=== PATIENT | male | born 1955 | race Caucasian/White ===

== ENCOUNTER 2017-10-28 11:19 | Emergency (ER) | payer OTHER ==
--- OUTSIDE RECORDS SUMMARY | 2017-10-28 11:21 | XMS REPORT | Clinical Summary ---
:1955 Author Organization [facility] Address [address] [place] [address] Care Team Providers Name Role Phone Will Quick MD Primary Care Provider Allergies No Known Allergies Current Medications Prescription Sig. Disp. Refills Start Date End Date Status traMADol (ULTRAM) 50 Take 1 tablet 15 tablet 0 03/11/2017 03/16/2017 mg tablet (50 mg total) by mouth every 6 (six) hours as needed for moderate pain for up to 5 days. acetaminophen-codeine Take 1-2 tablets 60 tablet 0 05/25/2017 06/09/2017 (TYLENOL WITH CODEINE by mouth every 4 #3) 300-30 mg per (four) hours as tablet needed for moderate pain for up to 15 days. tiZANidine (ZANAFLEX) Take 1 tablet (2 20 tablet 0 05/25/2017 06/24/2017 2 MG tablet mg total) by mouth every 6 (six) hours as needed for muscle spasms for up to 30 days. traMADol (ULTRAM) 50 Take 1 tablet 60 tablet 0 05/25/2017 06/09/2017 mg tablet (50 mg total) by mouth every 6 (six) hours as needed for moderate pain for up to 15 days. 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); MD Meghan Chronic low back pain without sciatica, unspecified back pain laterality; Sagittal plane imbalance; Degenerative scoliosis in adult patient; DDD (degenerative disc disease), lumbar 06/12/2017 Office Visit Orthopedic Surgery Jose Gibson Scoliosis, unspecified scoliosis type, unspecified spinal region (Primary Dx); MD Meghan Sagittal plane imbalance; Pseudarthrosis following spinal fusion; Chronic low back pain without sciatica, unspecified back pain laterality 05/23/2017 Hospital Encounter Neurology Jose Gibson Pseudarthrosis after MD Meghan fusion or arthrodesis 05/23/2017 Anesthesia Event General Surgery Nikko Rodriguez MD 05/23/2017 Procedure Pass General Surgery 05/23/2017 Surgery General Surgery Jose Gibson REVISION MD Meghan INSTRUMENTATION THORACIC 10- PELVIS AND REVISION OF FUSION FROM LUMBAR 4 - PELVIS 05/16/2017 - Hospital Encounter Orthopedic Surgery Jose Gibson Pseudarthrosis after 05/26/2017 MD Meghan fusion or arthrodesis 05/16/2017 Procedure Pass General Surgery 05/16/2017 Surgery General Surgery Jose Gibson ANTERIOR REVISION MD Meghan LUMBAR INTERBODY FUSION L5-S1 OSTEOTOMY ANTERIOR INTERBODY INSTRUMENTATION L5-S1 WITH BMP 05/14/2017 Anesthesia Event General Surgery James Bedoya, FORMING MACHINE OPERATOR 04/11/2017 Orders Only Orthopedic Surgery Claudia Roberts, Pseudarthrosis after MA fusion or arthrodesis (Primary Dx) 04/10/2017 Pre-Admit Testing Pre-Admission Jose Gibson Appointment Testing MD Meghan 04/10/2017 Office Visit Orthopedic Surgery Jose Gibson Scoliosis, unspecified scoliosis type, unspecified spinal region (Primary Dx); MD Meghan Pseudarthrosis following spinal fusion; Sagittal plane imbalance; Chronic low back pain without sciatica, unspecified back pain laterality 03/13/2017 Office Visit Orthopedic Surgery Jose Gibson Pseudarthrosis following spinal fusion (Primary Dx); MD Meghan Degenerative scoliosis in adult patient; DDD (degenerative disc disease), lumbar; Chronic low back pain without sciatica, unspecified back pain laterality 03/11/2017 Emergency Emergency Medicine Vaishali Acute midline low back Marvin, DO pain without sciatica (Primary Dx) after 10/27/2016 Family History Medical History Relation Name Comments Hypertension Father Diabetes Mother Relation Name Status Comments Father Mother Social History Tobacco Use Types Packs/Day Years Used Date Former Smoker Cigarettes 1 46 Quit: 03/13/2017 Alcohol Use Drinks/Week oz/Week Comments No Sex Assigned at Date Recorded Not on file Last Filed Vital Signs Vital Sign Reading Time Taken Blood Pressure 122/78 05/26/2017 7:44 AM BIOLOGIST AIDE Pulse 78 05/26/2017 7:44 AM BIOLOGIST AIDE Temperature 36.9 C (98.5 F) 05/26/2017 7:44 AM BIOLOGIST AIDE Respiratory Rate 18 05/26/2017 7:44 AM BIOLOGIST AIDE Oxygen Saturation 97% 05/26/2017 7:44 AM BIOLOGIST AIDE Inhaled Oxygen Concentration - - Weight 73.7 kg (162 lb 7 oz) 05/16/2017 6:27 AM BIOLOGIST AIDE Height 180.3 cm (5' 11") 05/23/2017 6:35 AM BIOLOGIST AIDE Body Mass Index 22.66 05/16/2017 6:27 AM BIOLOGIST AIDE Plan of Treatment Date Type Specialty Care Team Description 11/06/2017 Office Visit Orthopedic Surgery Jose Gibson MD [address] [address] Health Maintenance Due Date Last Done Comments COLONOSCOPY 2004 ZOSTER VACCINE 2014 INFLUENZA VACCINE 02/05/2018 Implants Implanted Type Area Cloud Systems Administrator Device Expiration Model / Serial Identifier Date / Lot Chip Canc Allograft Leader Crshd 30cc 0.1-4mm - [id number] - [id number] Human Tissue N/A: MUSCULOSKELETAL 11/22/2019 [id number] / Implanted: Qty: 1 on 05/16/2017 by Jose Gibson MD Implants N/A TRANSPLANT [id number] / FOUNDATION [id number] Kit Bone Grft Lmbr Tprd 2.8ml Sm Infuse - [id number] Human Tissue N/A: MEDTRONIC SPINAL 05/07/2019 [id number] / Implanted: Qty: 1 on 05/16/2017 by Jose Gibson MD Implants N/A AND BIOLOGICS / [id number] Chip Canc Allograft Leader Crshd 30cc 0.1-4mm - [id number] - [id number] Human Tissue N/A: MUSCULOSKELETAL 02/01/2020 [id number] / Implanted: Qty: 1 on 05/23/2017 by Jose Gibson MD Implants N/A TRANSPLANT [id number] / FOUNDATION [id number] [facility] Allograft Leader Crshd 30cc 0.1-4mm - [id number] - [id number] Human Tissue N/A: MUSCULOSKELETAL 02/01/2020 [id number] / Implanted: Qty: 1 on 05/23/2017 by Jose Gibson MD Implants N/A TRANSPLANT [id number] / FOUNDATION [id number] Kit Bone Grft Lmbr Tprd 5.6ml Med Infuse - [id number] Human Tissue N/A: MEDTRONIC SPINAL 09/04/2018 [id number] / Implanted: Qty: 1 on 05/23/2017 by Jose Gibson MD Implants N/A AND BIOLOGICS / [id number] Synmesh 22mm X 28mm 34mm Height (Ti) - (00) Synmesh - [id number] [id number] IMPLANT N/A: SYNTHES SPINE [id number] / Implanted: Qty: 1 on 05/16/2017 by Jose Gibson MD DEVICES N/A / 30mm Ao Screw - [id number] [id number] IMPLANT N/A: SYNTHES SPINE [id number] / Implanted: Qty: 1 on 05/16/2017 by Jose Gibson MD DEVICES N/A / Expedium Plus Ti, José Miguel, Str, Ti, 450mm (Hx End) - [id number] [id number] IMPLANT N/A: DEPUY SYNTHES [id number] / Implanted: Qty: 2 on 05/23/2017 by Jose Gibson MD DEVICES N/A SPINE / [employer] Iexp Ti Fdc X25 Set Screw - [id number] [id number] IMPLANT N/A: DEPUY SYNTHES [id number] / Implanted: Qty: 3 on 05/23/2017 by Jose Gibson MD DEVICES N/A SPINE / Washer For Lg Ti Scr 13mm - [id number] Orthopedic N/A: SYNTHES TRAUMA [id number] / Implanted: Qty: 1 on 05/16/2017 by Jose Gibson MD Trauma N/A AND RECON / Implants Screw Spinal Set Si Ti 6.35mm Expedium - [id number] Spinal N/A: DEPUY SPINE [id number] / Implanted: Qty: 16 on 05/23/2017 by Jose Gibson MD Implants N/A / Kit Hemostatic Matrix W/Thrombin 8ml Surgiflo - [id number] Surgical N/A: [facility] 09/04/2018 [id number] / Implanted: Qty: 1 on 05/16/2017 by Jose Gibson MD Implants; N/A / Expanders; [id number] Extenders; Surgical Wires Kit Hemostatic Matrix W/Thrombin 8ml Surgiflo - [id number] Surgical N/A: [facility] 09/04/2018 [id number] / Implanted: Qty: 1 on 05/23/2017 by Jose Gibson MD Implants; N/A / Expanders; [id number] Extenders; Surgical Wires Procedures Procedure Name Priority Date/Time Associated Diagnosis Comments INTRAOPERATIVE Routine 05/23/2017 11:11 Pseudarthrosis after Results for this MONITORING AM BIOLOGIST AIDE fusion or arthrodesis procedure are in the results section. ARTERIAL LINE Routine 05/23/2017 8:33 AM BIOLOGIST AIDE Procedure Note - Nikko Rodriguez MD - 05/23/2017 8:32 AM BIOLOGIST AIDE Arterial line Performed by: NIKKO RODRIGUEZ Authorized by: NIKKO RODRIGUEZ Patient Location: OR Staff: Anesthesiologist: NIKKO RODRIGUEZ Performed by: Anesthesiologist Pre-procedure: patient identified, IV checked, site and side verified, risks and benefits discussed, procedure verified, surgical consent complete, patient position confirmed, monitors and equipment checked and pre-op evaluation complete MSBT: antiseptic used, all elements of maximal sterile barrier technique followed, hand hygiene performed, cap/gown used by other personnel and solutions labeled Indications: Indications: hemodynamic monitoring Anesthesia: Anesthesia: General Procedure Details: Arterial Line placement: Placed post induction Line placement site: Radial Line placement side: Left Arterial line gauge: 20 G Number of attempts: 1 Ultrasound guidance used: No Post-procedure: Post-procedure: Sterile dressing applied Post procedure circulation, sensation, movement: Normal and unchanged Patient tolerance: Patient tolerated the procedure well with no immediate complications ANESTHESIA INTUBATION Routine 05/23/2017 8:32 AM BIOLOGIST AIDE Procedure Note - Nikko Rodriguez MD - 05/23/2017 8:32 AM BIOLOGIST AIDE Airway Performed by: NIKKO RODRIGUEZ Authorized by: NIKKO RODRIGUEZ Location: OR Difficult Airway: No Anesthesiologist: NIKKO RODRIGUEZ Performed by: anesthesiologist Preoxygenated with 100% O2: Yes Mask Ventilation: Not attempted Final Airway Type: Endotracheal airway Final Endotracheal Airway: ETT Technique Used: Direct laryngoscopy Insertion Site: Oral Blade Type: Katherine Laryngoscope Blade/Videolaryngoscope Blade Size: 3 ETT Size (mm): 8.0 Measured from: Lips ETT to Lips (cm): 23 Placement Verified by: CO2 detection, direct visualization and equal breath sounds Laryngoscopic view: Grade IIa - partial view of glottis Rapid Sequence Induction (RSI): Yes Number of Attempts at Approach: 1 REVISION INSTRUMENTATION THORACIC 10- PELVIS AND 05/23/2017 7:30 AM BIOLOGIST AIDE M96.0 REVISION OF FUSION FROM LUMBAR 4 - PELVIS Case Notes C-ARM CELL SAVER SSEP MOTORS 90 ALLOGRAFT GRADUALS HORI ZONAL GEL ROLLS DEPUTY YAMILET SUCTION BOVIE Special Needs C-ARM CELL SAVER SSEP MOTORS 90 ALLOGRAFT GRADUALS HORIZONAL GEL ROLLS DEPUY YAMILET SUCTION BOVIE INTRAOPERATIVE Routine 05/16/2017 2:14 Pseudarthrosis after Results for this MONITORING PM BIOLOGIST AIDE fusion or arthrodesis procedure are in the results section. ARTERIAL LINE Routine 05/16/2017 10:00 Results for this AM BIOLOGIST AIDE procedure are in the results section. MO AN ELECTIVE Routine 05/16/2017 9:59 Results for this ENDOTRACHEAL AIRWAY AM BIOLOGIST AIDE procedure are in the results section. ANTERIOR REVISION 05/16/2017 7:30 Nonunion of subtalar LUMBAR INTERBODY FUSION AM BIOLOGIST AIDE arthrodesis L5-S1 OSTEOTOMY ANTERIOR INTERBODY INSTRUMENTATION L5-S1 WITH BMP Case Notes C-ARM, SSEP'S WITH MOTORS, @[address] BOSTON ANTERIOR EXPOSURE PHYSICIAN 05/15/17TW Special Needs DR BOSTON FOR ANTERIOR EXPOSURE, C-ARM, CELL SAVER, SSEP MOTORS, 90 CC ALLOGRAFT GRANULES, YAMILET SUCTION BOVIE, DEPUY after 10/27/2016 Results XR Spine Scoliosos 2-3 Views (08/14/2017 10:02 AM)Only the most recent of4 resultswithin the time period is included. Specimen Performing Laboratory [facility] [address] [place] [address] Narrative AP lateral scoliosis x-ray shows hardware from the thoracolumbar spine to the pelvis with interbody instrumentation at the thoracolumbar junction. The interbody instrumentation appears intact with no evidence of hardware failure or lucency.Multilevel degenerative changes and cervical thoracic spine are noted above the prior construct with no evidence of new abnormalities. CBC hemogram (05/25/2017 5:00 AM)Only the most recent of2 resultswithin the time period is included. Component Value Ref Range WBC 12.25 (H) 4.50 - 11.00 k/uL RBC 3.17 (L) 4.40 - 6.00 m/uL HGB 9.2 (L) 14.0 - 18.0 g/dL HCT 28.6 (L) 41.0 - 51.0 % MCV 90.2 82.0 - 100.0 fL MCH 29.0 27.0 - 34.0 pg MCHC 32.2 31.0 - 37.0 g/dL RDW - SD 44.9 37.0 - 55.0 fL MPV 8.8 8.8 - 13.2 fL Platelet count 320 150 - 400 k/uL Nucleated RBC 0.00 /100 WBC Specimen Performing Laboratory Blood [facility] DEPARTMENT OF PATHOLOGY AND GENOMIC MEDICINE [address] [place] [address] Estimated GFR (05/24/2017 4:00 AM)Only the most recent of2 resultswithin the time period is included. Component Value Ref Range GFR Non Af Amer >90 mL/min/1.73 m2 GFR Af Amer >90 mL/min/1.73 m2 Comment: Chronic kidney disease: <60 mL/min/1.73m2 Kidney failure: <15 mL/min/1.73m2 The estimated GFR is calculated from the IDMS-traceable Modification of Diet in Renal Disease Equation. The accuracy of the calculation is poor when the creatinine is normal. Calculated values >90 mL/min/1.73m2 are not reported. This equation has not been validated in children (<18 years), women, the elderly (>70 years), or ethnic groups other than Caucasians and Americans. Specimen Performing Laboratory Plasma specimen [facility] DEPARTMENT OF PATHOLOGY AND GENOMIC MEDICINE [address] [place] [address] Basic metabolic panel (05/24/2017 4:00 AM)Only the most recent of2 resultswithin the time period is included. Component Value Ref Range Sodium 138 135 - 148 mEq/L Potassium 4.2 3.5 - 5.0 mEq/L Chloride 99 98 - 112 mEq/L CO2 26 24 - 31 mEq/L Anion gap 13 7 - 15 mEq/L Comment: Starting from October , anion gap calculation no longer incorporates potassium. Please note the change. BUN 14 8 - 23 mg/dL Creatinine 0.8 0.7 - 1.2 mg/dL Glucose 110 (H) 65 - 99 mg/dL Calcium 9.2 8.8 - 10.2 mg/dL Specimen Performing Laboratory Plasma specimen [facility] DEPARTMENT OF PATHOLOGY AND GENOMIC MEDICINE [address] [place] [address] Intraoperative monitoring (05/23/2017 11:11 AM) Narrative INTRAOPERATIVE NEURO MONITORING Patient Name: Asher Reinoso Date of : 1955 Gender: male Date of Service: 05/23/2017 Surgical Procedure: L4-Pelvis fusion OR: [facility] Room #: 12 Tech #1: Edi Curtis Quintanalha, Fabio Start Time: 0815 End Time: 1000 Total Time (in hours): 1.8 Requesting physician: Dr. Gibson Physician IOM Time: 1.8 h Procedure(s) performed During IOM: SSEP UE & LE Bilateral CPT 08880-85 x 1 TcMEPs UE & LE Bilateral CPT 95714-38 x 1 EMG 2 [id number] x 1 60051 IOM remote or multiple cases x 2 ICD10: M96.0 Stimulation Parameters Ulnar nerves individually stimulated at the wrist. Rate 4.7 Hz, Intensity 20-60 mA, Duration 0.3 ms, Filters 30-500 Hz, Notch Off Posterior Tibial nerves individually stimulated at the ankle., Rate 4.7 Hz, Intensity 30 - 80 mA, Duration 0.3 ms, Filters 30-500 Hz, Notch Off Motor strip stimulated anterior to C3 and C4 with alternating polarities, Intensity 500 V Train Rate 4-5 VINOD 2-3 ms, Filter 30-2KHz Notch off Technical Summary Intraoperative neurophysiological monitoring was performed using a combination of upper and lower extremity somatosensory evoked potentials (SEP), transcranial electrical motor potentials (TcMEP) and running electromyography (EMG) of the innervated muscle groups. A real time connection was established by the monitoring technologist with the examining neurologist throughout the operative procedure. Lower extremity somatosensory evoked potentials were recorded peripherally at the popliteal fossa and centrally at the cervical and cortical levels following posterior tibial nerve stimulation at the ankle. Upper extremity somatosensory evoked potentials were recorded centrally at the cervical and cortical levels following ulnar nerve stimulation at the wrist. There were no significant surgically related changes in amplitude or latency to the cervical and/or cortical SEP responses throughout the surgical procedure. TcMEPs were recorded peripherally from the upper and lower extremities following alternating polarity motor strip stimulation. Post-induction TcMEP responses to motor cortex stimulation were clear and reproducible bilaterally. No significant surgically related changes in amplitude or latency of the TcMEPs were noted throughout the surgical procedure. At closing responses were judged to be essentially unchanged from those of post positioning baselines. Free running EMG of the innervated muscle groups was monitored continuously throughout the operative procedure without sustained neurotonic discharges noted but there was some spontaneous EMG activity intermittently in the bilateral quadratus femoris, tibialis anterior and gastrocnemius. Conclusion These results suggest the absence of a significant delay or reduction in amplitude of cervical and cortical SEP responses suggest the absence of untoward, secondary changes to posterior spinal cord function as a result of this surgical procedure. The absence of delay or decrease in amplitude of the TcMEP responses suggest no change in the peripheral nerve or corticospinal tract. The absence of sustained neurotonic discharges on free-running EMG suggests that the monitored nerve roots remained undisturbed during this procedure. All values were reported to the surgeon in real time. . Surgical pathology request (05/23/2017 11:10 AM) Component Value Ref Range Surgical pathology report See link below for PDF Lab Report Result status This is Final Report to [id number] Specimen Performing Laboratory [facility] DEPARTMENT OF PATHOLOGY AND GENOMIC MEDICINE [address] [place] [address] Fungus smear (05/23/2017 9:54 AM) Component Value Ref Range Fungus smear No fungi observed. Comment: Specimen Information Specimen Source: Tissue Specimen Site: spine Specimen Performing Laboratory Tissue [facility] DEPARTMENT OF PATHOLOGY AND GENOMIC MEDICINE [address] [place] [address] AFB culture (05/23/2017 9:54 AM) Component Value Ref Range AFB culture isolate No growth after 6 weeks of incubation. Comment: Specimen Information Specimen Source: Tissue Specimen Site: spine Specimen Performing Laboratory Tissue - Other [facility] DEPARTMENT OF PATHOLOGY AND GENOMIC MEDICINE [address] [place] [address] 1967[address] Tissue culture (05/23/2017 9:54 AM) Component Value Ref Range Tissue culture isolate No growth after 3 days. Comment: Specimen Information Specimen Source: Tissue Specimen Site: spine Specimen Performing Laboratory Tissue Other [facility] DEPARTMENT PATHOLOGY [address] [address] Gram stain (05/23/2017 9:54 AM) Component Value Ref Range Gram stain isolate No WBC's No organisms seen Comment: Specimen Information Specimen Source: Tissue Specimen Site: spine Specimen Performing Laboratory Tissue [facility] DEPARTMENT PATHOLOGY [address] [address] AFB stain (05/23/2017 9:54 AM) Component Value Ref Range AFB stain No acid fast bacilli (AFB) seen. Comment: Specimen Information Specimen Source: Tissue Specimen Site: spine Specimen Performing Laboratory Tissue [facility] DEPARTMENT PATHOLOGY [address] [address] Fungus culture (05/23/2017 9:54 AM) Component Value Ref Range Fungus culture isolate No growth after 4 weeks of incubation. Comment: Specimen Information Specimen Source: Tissue Specimen Site: spine Specimen Performing Laboratory Tissue [facility] DEPARTMENT PATHOLOGY [address] [address] Anaerobic culture (05/23/2017 9:54 AM) Component Value Ref Range Anaerobic culture isolate No anaerobic organisms isolated. Comment: Specimen Information Specimen Source: Tissue Specimen Site: spine Specimen Performing Laboratory Tissue [facility] DEPARTMENT OF PATHOLOGY [address] [address] Sodium level, syringe (05/23/2017 9:23 AM)Only the most recent of2 resultswithin the time period is included. Component Value Ref Range Sodium, syringe 134 (L) 135 - 148 mEq/L Specimen Performing Laboratory Blood [facility] OF PATHOLOGY [address] [address] Potassium, syringe (05/23/2017 9:23 AM)Only the most recent of2 resultswithin the time period is included. Component Value Ref Range Potassium, syringe 3.8 3.5 - 5.0 mEq/L Specimen Performing Laboratory Blood [facility] PATHOLOGY [address] [address] Ionized calcium, arterial (05/23/2017 9:23 AM)Only the most recent of2 resultswithin the time period is included. Component Value Ref Range Ionized calcium, arterial 1.05 (L) 1.11 - 1.32 mmol/L Specimen Performing Laboratory Blood [facility] DEPARTMENT OF PATHOLOGY AND [facility] MEDICINE [address] [place] [address] Hemoglobin, syringe (05/23/2017 9:23 AM)Only the most recent of2 resultswithin the time period is included. Component Value Ref Range Hemoglobin, syringe 9.9 (L) 14.0 - 18.0 g/dL Specimen Performing Laboratory Blood [facility] PATHOLOGY [address] [address] Glucose level, syringe (05/23/2017 9:23 AM)Only the most recent of2 resultswithin the time period is included. Component Value Ref Range Glucose, syringe 99 65 - 99 mg/dL Specimen Performing Laboratory Blood [facility] PATHOLOGY [address] [address] Arterial blood gas, corrected (05/23/2017 9:23 AM)Only the most recent of2 resultswithin the time period is included. Component Value Ref Range pH, arterial 7.38 7.35 - 7.45 pCO2, arterial 41 35 - 45 mmHg pO2, arterial 412 (H) 80 - 90 mmHg Temperature, Celsius 36.1 Degrees C O2 saturation, arterial 100 95 - 100 % pH, arterial corrected 7.39 pCO2, arterial corrected 39 mmHg pO2, arterial corrected 408 mmHg Base excess, arterial -1 -2 - 2 mEq/L Specimen Performing Laboratory Blood [facility] DEPARTMENT OF PATHOLOGY AND [address] [address] CBC with platelet and differential (05/23/2017 4:00 AM)Only the most recent of2 resultswithin the time period is included. Component Value Ref Range WBC 9.19 4.50 - 11.00 k/uL RBC 3.79 (L) 4.40 - 6.00 m/uL HGB 11.0 (L) 14.0 - 18.0 g/dL HCT 33.3 (L) 41.0 - 51.0 % MCV 87.9 82.0 - 100.0 fL MCH 29.0 27.0 - 34.0 pg MCHC 33.0 31.0 - 37.0 g/dL RDW - SD 43.4 37.0 - 55.0 fL MPV 9.0 8.8 - 13.2 fL Platelet count 318 150 - 400 k/uL Nucleated RBC 0.00 /100 WBC Neutrophils 64.9 39.0 - 69.0 % Lymphocytes 18.0 (L) 25.0 - 45.0 % Monocytes 13.3 (H) 0.0 - 10.0 % Eosinophils 2.3 0.0 - 5.0 % Basophils 0.4 0.0 - 1.0 % Immature granulocytes 1.1 (H)Comment: "Immature granulocytes" 0.0 - 1.0 % (promyelocytes, myelocytes, metamyelocytes) Specimen Performing Laboratory Blood [facility] DEPARTMENT OF PATHOLOGY AND [facility] [address] [place] [address] Type and screen (05/22/2017 11:35 AM)Only the most recent of2 resultswithin the time period is included. Component Value Ref Range ABO grouping O Rh type POS Antibody screen (gel) NEG Specimen Performing Laboratory Blood [facility] [place] [address] Pv duplex venous lower extremity (05/22/2017 9:50 AM) Specimen Performing Laboratory [facility] [address] [place] [address] Narrative Vascular Ultrasound Laboratory Lower Extremity Venous Report [address] [place] [address] Pat.Name:ASHER REINOSO Pat.ID:[id number] .Date: 05/22/2017Refer.MD:JOSE GIBSON MD Exam Time: 9:25:00 AMStudy Type:LE Venous DOBAge:1955,62YSex: MALE Sonogrphr: Stalin Mercado, RVSPat. Stat.:Inpatient TapeVol: , CPT - 4: 69438 Echo Event ID:[id number] Order ID:[id number] Reason for Study:Rule out DVT. Race:C SUMMARY: DUPLEX SCAN OBSERVATIONS Deep VeinsSuperficial Veins RightLeft RightLeft EIV GSV (prox) NormalNormal CFV Normal Normal (above knee) Femoral Normal Normal GSV (dist) Normal Normal Profunda Normal Normal (below knee) Popliteal Normal Normal PT (prox) Normal NormalSSV Not Visualized Not Visualized PT (dist) Normal Normal Peroneal Normal Normal RIGHT:There is normal compressibility with no evidence of echogenic material noted within the lumen of the visualized veins.Colorflow and Doppler signals are normal. LEFT: There is normal compressibility with no evidence of echogenic material noted within the lumen of the visualized veins. Colorflow and Doppler signals are normal. PRELIMINARY FINDINGS 1.Normal venous duplex exam of the visualized veins. PHYSICIAN INTERPRETATION 1.Venous examination of the both lower extremities demonstrates no evidence of venous thrombosis. Signed 05/22/2017 10:08 AM Saeid Morales MD Procedure Note Interface, Radiology Results In - 05/22/2017 10:08 AM [facility] Vascular Ultrasound Laboratory Lower Extremity Venous Report [id number]Name: ASHER REINOSO Pat.ID: [id number] .Date: 05/22/2017 Refer.MD: JOSE GIBSON MD Exam Time: 9:25:00 AM Study Type:LE Venous Age: 10 1955,62Y Sex: MALE Sonogrphr: ZELALEM Arroyo Pat. Stat.:Inpatient Tape Vol: FE, CPT - 4: 29934 Echo Event ID:[id number] Order ID: [id number] Reason for Study:Rule out DVT. Race: C SUMMARY: DUPLEX SCAN OBSERVATIONS Deep Veins Superficial Veins Right Left Right Left EIV GSV (prox) Normal Normal CFV Normal Normal (above knee) Femoral Normal Normal GSV (dist) Normal Normal Profunda Normal Normal (below knee) Popliteal Normal Normal PT (prox) Normal Normal SSV Not Visualized Not Visualized PT (dist) Normal Normal Peroneal Normal Normal RIGHT: There is normal compressibility with no evidence of echogenic material noted within the lumen of the visualized veins. Colorflow and Doppler signals are normal. LEFT: There is normal compressibility with no evidence of echogenic material noted within the lumen of the visualized veins. Colorflow and Doppler signals are normal. PRELIMINARY FINDINGS 1. Normal venous duplex exam of the visualized veins. PHYSICIAN INTERPRETATION 1. Venous examination of the both lower extremities demonstrates no evidence of venous thrombosis. Signed 05/22/2017 10:08 AM Saeid Morales MD XR Lumbar Spine 2 Or 3 Vw (05/17/2017 2:28 PM)Only the most recent of2 resultswithin the time period is included. Specimen Performing Laboratory [facility] [address] [place] [address] Narrative EXAMINATION: XR LUMBAR SPINE 2 OR 3 VW CLINICAL HISTORY: POD1 anterior lumbar fusion COMPARISON:Lumbar spine radiographs from March 11, 2017. IMPRESSION: 1. Posterior fusion from T10 through the pelvis, with bilateral transpedicular screws from T10 through L1, and from L3 through L5. Vertical josé miguel is discontinuous at the L5-S1 level. Bilateral obliquely oriented iliac screws. Interbody grafts are noted at L5-S1, L4-L5 and L3-L4. Anterior midline screw at L4. The L5-S1 interbody graft is new since the previous radiographs, and results in increased disc space height at this level. 2. No other significant change compared to the previous radiographs. No spondylolisthesis is seen on the lateral radiographs. 3. Surgical clips are again noted in the right upper quadrant. [facility]-[id number] Procedure Note Interface, Radiology Results Incoming - 05/17/2017 3:37 PM BIOLOGIST AIDE EXAMINATION: XR LUMBAR SPINE 2 OR 3 VW CLINICAL HISTORY: POD1 anterior lumbar fusion COMPARISON: Lumbar spine radiographs from March 11, 2017. IMPRESSION: 1. Posterior fusion from T10 through the pelvis, with bilateral transpedicular screws from T10 through L1, and from L3 through L5. Vertical josé miguel is discontinuous at the L5-S1 level. Bilateral obliquely oriented iliac screws. Interbody grafts are noted at L5-S1, L4-L5 and L3-L4. Anterior midline screw at L4. The L5-S1 interbody graft is new since the previous radiographs, and results in increased disc space height at this level. 2. No other significant change compared to the previous radiographs. No spondylolisthesis is seen on the lateral radiographs. 3. Surgical clips are again noted in the right upper quadrant. [facility]-[id number] Intraoperative monitoring (05/16/2017 2:14 PM) Narrative INTRAOPERATIVE NEURO MONITORING Patient Name: Asher Reinoso Date of : 1955 Gender: male Date of Service: 05/16/2017 Surgical Procedure: Revision ALIF L5-S1 Osteotomy Anterior Interbody Instrumentation L5-S1 w/ BMP OR: (JORGE LUIS) Room #: (9) Tech #1: (JN/FQ) Start Time: (09:00) End Time: (12:08) Total Time (in hours): (3) Requestgin physician: Dr. Gibson Physician IOM Time: 3 h 8 min Procedure(s) performed During IOM: SSEP UE & LE Bilateral CPT 66460-91 x 1 TcMEPs UE & LE Bilateral CPT 50041-46 x 1 EMG 2 [id number] x 1 G0453 IOM remote (1unit/q15 minutes) medicarex 13 ICD10:M96.0 Stimulation Parameters Ulnar nerves individually stimulated at the wrist. Rate 4.7 Hz, Intensity 20-60 mA, Duration 0.3 ms, Filters 30-500 Hz, Notch Off Posterior Tibial nerves individually stimulated at the ankle., Rate 4.7 Hz, Intensity 30 - 80 mA, Duration 0.3 ms, Filters 30-500 Hz, Notch Off Motor strip stimulated anterior to C3 and C4 with alternating polarities, Intensity 500 V Train Rate 4-5 VINOD 2-3 ms, Filter 30-2KHz Notch off Technical Summary Intraoperative neurophysiological monitoring was performed using a combination of upper and lower extremity somatosensory evoked potentials (SEP), transcranial electrical motor potentials (TcMEP) and running electromyography (EMG) of the innervated muscle groups. A real time connection was established by the monitoring technologist with the examining neurologist throughout the operative procedure. Lower extremity somatosensory evoked potentials were recorded peripherally at the popliteal fossa and centrally at the cervical and cortical levels following posterior tibial nerve stimulation at the ankle. Upper extremity somatosensory evoked potentials were recorded centrally at the cervical and cortical levels following ulnar nerve stimulation at the wrist. Post-induction upper and lower extremity SSEP responses were clear and reproducible bilaterally. There were no significant surgically related changes in amplitude or latency to the cervical and/or cortical SEP responses throughout the surgical procedure. TcMEPs were recorded peripherally from the upper and lower extremities following alternating polarity motor strip stimulation. Post-induction TcMEP responses to motor cortex stimulation were clear and reproducible bilaterally. No significant surgically related changes in amplitude or latency of the TcMEPs were noted throughout the surgical procedure. At closing responses were judged to be essentially unchanged from those of post positioning baselines. Free running EMG of the innervated muscle groups was monitored continuously throughout the operative procedure with no sustained neurotonic discharges noted. Conclusion The absence of a significant delay or reduction in amplitude of cervical and cortical SEP responses suggest the absence of untoward, secondary changes to posterior spinal cord function as a result of this surgical procedure. The absence of sustained neurotonic discharges on free-running EMG suggests that the monitored nerve roots remained undisturbed during this procedure. All values were reported to the surgeon in real time. OR FL > I Hour (05/16/2017 12:10 PM) Specimen Performing Laboratory [facility] [address] [place] [address] Narrative EXAMINATION:OR FL 1 HOUR C-arm fluoroscopy was requested in OR. LOCATION:[facility]9 PROCEDURE:REVISION ALIF L5-S1 START:1000 END:1210 FLUORO TIME:33 SEC DOSE:31.28 TECH(S):MA IMPRESSION: Separate operative report will be issued by the physician performing the procedure. [id number] Procedure Note Interface, Radiology Results Incoming - 05/16/2017 6:39 PM BIOLOGIST AIDE EXAMINATION: OR FL 1 HOUR C-arm fluoroscopy was requested in OR. LOCATION:[facility] PROCEDURE:REVISION ALIF L5-S1 START:1000 END:1210 FLUORO TIME:33 SEC DOSE:31.28 TECH(S):MA IMPRESSION: Separate operative report will be issued by the physician performing the procedure. [id number] Magnesium level (05/16/2017 10:40 AM) Component Value Ref Range Magnesium 2.1 1.6 - 2.4 mg/dL Specimen Performing Laboratory Plasma specimen [facility] DEPARTMENT OF PATHOLOGY AND GENOMIC MEDICINE [address] [place] [address] Arterial line (05/16/2017 10:00 AM) Narrative Carolyn Lora MD 05/16/20179:54 AM Arterial line Performed by: CAROLYN LORA Authorized by: DEREK PASTRANA Patient Location:OR Start Time:05/16/2017 8:50 AM End Time:05/16/2017 9:00 AM Staff: Anesthesiologist:DEREK PASTRANA Resident/TANK CAR RECONDITIONER:CAROLYN LORA Performed by:Anesthesiologist and resident/TANK CAR RECONDITIONER Pre-procedure: patient identified, IV checked, site and side verified, risks and benefits discussed, procedure verified, surgical consent complete, patient position confirmed, monitors and equipment checked and pre-op evaluation complete MSBT: antiseptic used, all elements of maximal sterile barrier technique followed, hand hygiene performed, cap/gown used by other personnel and solutions labeled TIme Out Performed:05/16/2017 8:50 AM Indications: Indications: multiple ABGs and hemodynamic monitoring Anesthesia: Anesthesia:General Procedure Details: Arterial Line placement:Placed post induction Line placement site:Radial Line placement side:Right Arterial line gauge:20 G Ultrasound guidance used: Yes Post-procedure: Post-procedure:Sterile dressing applied Post procedure circulation, sensation, movement:Unchanged and normal Patient tolerance:Patient tolerated the procedure well with no immediate complications ANESTHESIA INTUBATION (05/16/2017 9:59 AM) Raul Lora MD 05/16/20179:51 AM Airway Date/Time: 05/16/2017 8:39 AM Performed by: CAROLYN LORA Authorized by: DEREK PASTRANA Location:OR Urgency:Elective Difficult Airway: No Anesthesiologist:DEREK PASTRANA Resident/TANK CAR RECONDITIONER:CAROLYN LORA Performed by: resident/TANK CAR RECONDITIONER Preoxygenated with 100% O2: Yes C-spine Precautions Maintained Throughout: Yes Mask Ventilation:Easy mask Final Airway Type:Endotracheal airway Final Endotracheal Airway:ETT Cuffed: Yes Technique Used:Direct laryngoscopy Devices/Methods Used in Placement:Intubating stylet Insertion Site:Oral Blade Type:Sykes Laryngoscope Blade/Videolaryngoscope Blade Size:2 ETT Size (mm):8.0 Cuff at minimum occlusion pressure: Yes Measured from:Lips ETT to Lips (cm):22 Placement Verified by: CO2 detection and equal breath sounds Laryngoscopic view:Grade I - full view of glottis Rapid Sequence Induction (RSI): No Modified RSI: No Number of Attempts at Approach:1 Prepare fresh frozen plasma (05/16/2017 7:37 AM) Component Value Ref Range Product name Thawed Plasma Unit number [id number] Product code [id number] Dispense status Returned to not transfused Blood expiration date 20170521 Blood type code 5100 Blood type O POSITIVE Specimen Performing Laboratory [facility] DEPARTMENT OF PATHOLOGY AND GENOMIC MEDICINE [address] [place] [address] Prepare RBC, 4 Units (05/16/2017 7:37 AM) Component Value Ref Range Product name Red Blood Cells -1, Leukored Unit number [id number] Product code [id number] Dispense status Returned to BB not transfused Blood expiration date 20170610 Blood type code 5100 Blood type O POSITIVE Product name Red Blood Cells -1, Leukored Unit number [id number] Product code [id number] Dispense status Returned to BB not transfused Blood expiration date 20170610 Blood type code 5100 Blood type O POSITIVE Specimen Performing Laboratory [facility] DEPARTMENT OF PATHOLOGY AND GENOMIC MEDICINE [address] [place] [address] CT Thoracic Spine Wo Contrast (03/11/2017 5:20 AM) Specimen Performing Laboratory [facility] [address] [place] [address] Narrative Examination:CT THORACIC SPINE WO CONTRAST Clinical History: Prior spine surgeryfailed hardware Comparison: None. Findings: CT scans are performed using radiation dose reduction techniques.Technical factors are evaluated and adjusted to ensure appropriate moderation of exposure.Automated dose management technology is applied to adjust radiation exposure while achieving a diagnostic quality image. CT scan of the thoracic spine was performed without intravenous contrast. No acute fracture or dislocation is seen. Alignment of vertebral bodies are normal. Bilateral pedicular screws are noted through the lower thoracic spine. This includes at T11 and T12. Paraspinal soft tissues are unremarkable. IMPRESSION: 1. Bilateral pedicular screws at T11 and T12 as well as in the lumbar spine. No acute abnormality identified in the thoracic spine. [facility]-[id number] Procedure Note Interface, Radiology Results Incoming - 03/11/2017 5:37 AM CDT Examination: CT THORACIC SPINE WO CONTRAST Clinical History: Prior spine surgery failed hardware Comparison: None. Findings: CT scans are performed using radiation dose reduction techniques. Technical factors are evaluated and adjusted to ensure appropriate moderation of exposure. Automated dose management technology is applied to adjust radiation exposure while achieving a diagnostic quality image. CT scan of the thoracic spine was performed without intravenous contrast. No acute fracture or dislocation is seen. Alignment of vertebral bodies are normal. Bilateral pedicular screws are noted through the lower thoracic spine. This includes at T11 and T12. Paraspinal soft tissues are unremarkable. IMPRESSION: 1. Bilateral pedicular screws at T11 and T12 as well as in the lumbar spine. No acute abnormality identified in the thoracic spine. [facility]-[id number] CT Lumbar Spine Wo Contrast (03/11/2017 5:20 AM) Specimen Performing Laboratory [facility] [address] [place] [address] Narrative EXAMINATION:CT LUMBAR SPINE WO CONTRAST COMPARISON:None CLINICAL HISTORY:lumbar pain TECHNIQUE: Coronal and sagittal reformations were accomplished. Up to date CT equipment and radiation dose reduction techniques were utilized. FINDINGS: There is posterior fusion from T10 to the sacrum with pedicle screws at all levels except L2 with interconnecting rods. There is anterior fusion from L2-3 through L5-S1 with grafts in the disc spaces. There are fractures of the T11 screws. Otherwise the screws are in acceptable position and without the loosening. There are destructive changes with mild compression of L2. There is no malalignment. There is no definite spinal stenosis. Evaluation of nerve roots is limited due to metallic artifact. IMPRESSION: Extensive postop changes as described. [facility]-[id number] Procedure Note Interface, Radiology Results Incoming - 03/11/2017 6:29 AM CDT EXAMINATION: CT LUMBAR SPINE WO CONTRAST COMPARISON: None CLINICAL HISTORY: lumbar pain TECHNIQUE: Coronal and sagittal reformations were accomplished. Up to date CT equipment and radiation dose reduction techniques were utilized. FINDINGS: There is posterior fusion from T10 to the sacrum with pedicle screws at all levels except L2 with interconnecting rods. There is anterior fusion from L2-3 through L5-S1 with grafts in the disc spaces. There are fractures of the T11 screws. Otherwise the screws are in acceptable position and without the loosening. There are destructive changes with mild compression of L2. There is no malalignment. There is no definite spinal stenosis. Evaluation of nerve roots is limited due to metallic artifact. IMPRESSION: Extensive postop changes as described. [facility]-[id number] after 10/27/2016 Insurance Payer Benefit Plan / Group Subscriber ID Type Phone Address [employer] MED[employer]ARE [employer] MEDICARE PPO/PFFS/ERS [facility] xxxxxxxxx PPO
--- NOTE | 2017-10-28 12:19 | RAD REPORT ---
EXAM DESCRIPTION: RAD - Hand Right 3 View - 10/28/2017 11:56 am CLINICAL HISTORY: Hand pain, trauma, pain primarily second digit COMPARISON: None. FINDINGS: No fracture is identified. There is no dislocation or periosteal reaction noted. Prominen t degenerative change involves the fifth DIP joint were there is spurring and joint space narrowing. Mild IP joint space narrowing elsewhere in the hand. MCP joints are spared. IMPRESSION: No fracture or acute finding of the index finger. Degenerative changes elsewhere in the hand as detailed.
--- NOTE | 2017-10-28 13:56 | EDPHYS ---
Physician Documentation [facility] Name: Asher Reinoso Age: 62 yrs Sex: Male : 1955 Arrival Date: 10/28/2017 Time: 11:22 Bed 30 Private MD: Will Quick ED Physician Sean Norton HPI: 10/28 13:00 This 62 yrs old Male presents to ER via Ambulatory with complaints of Finger pm1 Injury. 18:25 The patient or guardian reports decreased range of motion, pain. The complaints affect pm1 the MCP of right index finger. Context: The problem was sustained at home, resulted from pushing his finger through a tire plug and it hyperextended and pulled his right 2nd finger. Onset: The symptoms/episode began/occurred yesterday. Associated signs and symptoms: Pertinent negatives: numbness distally, tingling distally. The patient has not experienced similar symptoms in the past. Patient unable to extend and medially move his 2nd finger . Historical: - Allergies: 11:30 NKA; iw - Home Meds: 11:30 None [Active]; iw - PMHx: 11:30 None; iw - PSHx: 11:30 Hernia repair; iw - Immunization history:: Adult Immunizations up to date. - Social history:: Smoking status: Patient/guardian denies using tobacco. ROS: 18:25 Constitutional: Negative for fever, chills, and weight loss, Cardiovascular: Negative pm1 for chest pain, palpitations, and edema, Respiratory: Negative for shortness of breath, cough, wheezing, and pleuritic chest pain, Abdomen/GI: Negative for abdominal pain, nausea, vomiting, diarrhea, and constipation, Back: Negative for injury and pain. 18:25 Skin: Negative for injury, rash, and discoloration, Neuro: Negative for headache, weakness, numbness, tingling, and seizure. 18:25 MS/extremity: Positive for pain, swelling, of the MCP of right index finger. Exam: 18:25 Constitutional: This is a well developed, well nourished patient who is awake, alert, pm1 and in no acute distress. Head/Face: Normocephalic, atraumatic. Chest/axilla: Normal chest wall appearance and motion. Nontender with no deformity. No lesions are appreciated. Cardiovascular: Regular rate and rhythm with a normal S1 and S2. No gallops, murmurs, or rubs. Normal PMI, no JVD. No pulse deficits. Respiratory: Lungs have equal breath sounds bilaterally, clear to auscultation and percussion. No rales, rhonchi or wheezes noted. No increased work of breathing, no retractions or nasal flaring. Back: No spinal tenderness. No costovertebral tenderness. Full range of motion. Skin: Warm, dry with normal turgor. Normal color with no rashes, no lesions, and no evidence of cellulitis. 18:25 Musculoskeletal/extremity: Extremities: grossly normal except: noted in the MCP of right index finger: decreased ROM, swelling, tenderness. 18:29 Skin: Exam negative for injury, No laceration on abrasion present to right hand. pm1 Vital Signs: 11:30 BP 139 / 99; Pulse 83; Resp 16; Temp 98.2; Pulse Ox 98% on R/A; Weight 79.38 kg; Height iw 5 ft. 11 in. (180.34 cm); Pain 3/10; 11:30 Body Mass Index 24.41 (79.38 kg, 180.34 cm) iw MDM: 12:21 Patient medically screened. pm1 13:54 Data reviewed: vital signs. Data interpreted: Pulse oximetry: on room air is 98 %. pm1 Interpretation: normal. Counseling: I had a detailed discussion with the patient and/or guardian regarding: the historical points, exam findings, and any diagnostic results supporting the discharge/admit diagnosis, radiology results, the need for outpatient follow up, for definitive care, a hand specialist, to return to the emergency department if symptoms worsen or persist or if there are any questions or concerns that arise at home. 10/28 11:31 Order name: Hand Right 3 View XRAY; Complete Time: 12:21 iw 10/28 13:23 Order name: Splint - Volar Wrist Splint; Complete Time: 14:08 pm1 Administered Medications: No medications were administered Disposition: 10/29 07:50 Co-signature as Attending Physician, Sean Norton MD I agree with the assessment and rafael plan of care. Disposition: 10/28/17 13:56 Discharged to Home. Impression: Other injury of extensor muscle, fascia and tendon of right index finger at wrist and hand level. - Condition is Stable. - Discharge Instructions: Tendon Injury. - Prescriptions for Tylenol- Codeine #3 300-30 mg Oral Tablet - take 1 tablet by ORAL route every 6 hours As needed; 15 tablet. - Medication Reconciliation Form, Thank You Letter, Prescription Opioid Use form. - Follow up: Emergency Department; When: As needed; Reason: Worsening of condition. Follow up: Yassine Coffey MD; When: 2 - 3 days; Reason: Recheck today's complaints, Continuance of care, Re-evaluation by your physician. - Problem is new. - Symptoms have improved. Signatures: Dispatcher [employer] EDMS Sean Norton MD MD cha Williams, Irene, RN RN Prasanth Kapadia, STEVAN NAIL TECH pm1 Iris Norris, RN RN [id number]
--- NOTE | 2017-10-28 13:56 | ER ---
Nurse's Notes [facility] Name: Asher Reinoso Age: 62 yrs Sex: Male : 1955 Arrival Date: 10/28/2017 Time: 11:22 Bed 30 Private MD: Will Quick Diagnosis: Other injury of extensor muscle, fascia and tendon of right index finger at wrist and hand level Presentation: 10/28 11:28 Presenting complaint: Patient states: was pushing hard on a plug for flat tire, felt iw pop in right index finger, has had pain and swelling since then, incident occurred 5 days ago. Transition of care: patient was not received from another setting of care. Onset of symptoms was October 23, 2017. Initial Sepsis Screen: Does the patient meet any 2 criteria? No. Patient's initial sepsis screen is negative. Does the patient have a suspected source of infection? No. Patient's initial sepsis screen is negative. Care prior to arrival: None. 11:28 Method Of Arrival: Ambulatory iw 11:28 Acuity: DENZEL 4 iw Triage Assessment: 19:48 Injury Description: finger bent backwards when landing. tl3 Historical: - Allergies: 11:30 NKA; iw - Home Meds: 11:30 None [Active]; iw - PMHx: 11:30 None; iw - PSHx: 11:30 Hernia repair; iw - Immunization history:: Adult Immunizations up to date. - Social history:: Smoking status: Patient/guardian denies using tobacco. Screenin:47 Abuse screen: Denies threats or abuse. Nutritional screening: No deficits noted. tl3 Tuberculosis screening: No symptoms or risk factors identified. Fall Risk None identified. Assessment: 12:30 General: Appears in no apparent distress. Behavior is calm, cooperative. Pain: dm5 Complains of pain in right index finger Pain currently is 3 out of 10 on a pain scale. Quality of pain is described as sharp, shooting, Pain began 2-3 days ago. Is intermittent, Aggravated by repositioning, weight bearing. Neuro: Level of Consciousness is awake, alert, obeys commands, Oriented to person, place, time, situation, Grinder Hand are equal bilaterally. Musculoskeletal: Circulation, motion, and sensation intact. Capillary refill < 3 seconds, Range of motion: intact in all extremities, Swelling present in right index finger. 13:20 Reassessment: No changes from previously documented assessment. Patient and/or family dm5 updated on plan of care and expected duration. Pain level reassessed. Patient is alert, oriented x 3, equal unlabored respirations, skin warm/dry/pink. pt has no needs at this time, awaiting splinting. Vital Signs: 11:30 BP 139 / 99; Pulse 83; Resp 16; Temp 98.2; Pulse Ox 98% on R/A; Weight 79.38 kg; Height iw 5 ft. 11 in. (180.34 cm); Pain 3/10; 11:30 Body Mass Index 24.41 (79.38 kg, 180.34 cm) iw ED Course: 11:22 Patient arrived in ED. mr 11:22 Will Quick MD is Private Physician. mr 11:29 Triage completed. iw 11:30 Arm band placed on. iw 11:55 X-ray completed. Portable x-ray completed in exam room. Patient tolerated procedure ml well. 11:56 Hand Right 3 View XRAY In Process Unspecified. EDMS 12:20 Prasanth Villar NP is PHCP. pm1 12:20 Sean Norton MD is Attending Physician. pm1 12:30 Cira Davidson, LEENA is Primary Nurse. dm5 13:54 Iris Norris RN is Primary Nurse. tl3 13:54 Yassine Coffey MD is Referral Physician. pm1 19:47 Patient has correct armband on for positive identification. tl3 19:47 No provider procedures requiring assistance completed. Patient did not have IV access tl3 during this emergency room visit. Administered Medications: No medications were administered Outcome: 13:56 Discharge ordered by MD. pm1 14:05 Discharged to home tl3 14:05 Condition: stable 14:05 Discharge instructions given to patient, Instructed on discharge instructions, follow up and referral plans. Demonstrated understanding of instructions, follow-up care, medications, splint care. 14:08 Patient left the ED. tl3 Signatures: Dispatcher [employer] EDMS Cira Davidson, RN RN dm5 Tabatha Sales Irene, RN RN iw Nayeli Coelho Patrick, NP CERAMIC PAINTER pm1 Iris Norris, LEENA RN tl3
== END 2017-10-28 14:08 | disposition home or self-care (01) ==
LOC: ER 11:19
DX: S69.91XA Unspecified injury of right wrist, hand and finger(s), initial encounter (principal); X58.XXXA Exposure to other specified factors, initial encounter; Y93.9 Activity, unspecified; Y92.9 Unspecified place or not applicable
CPT/HCPCS: 99283

== ENCOUNTER 2018-12-20 10:31 | Emergency (ER) | payer OTHER ==
--- OUTSIDE RECORDS SUMMARY | 2018-12-20 10:34 | XMS REPORT | Clinical Summary ---
:1955 Author Organization [facility] Address [address] [place] [address] Care Team Providers Name Role Phone Will Quick MD Primary Care Provider Allergies No Known Allergies Medications No known medications Active Problems Problem Noted Date Pseudarthrosis following spinal fusion 05/16/2017 Encounters Date Type Specialty Care Team Description 05/14/2018 Office Visit Orthopedic Surgery Jose Gibson Pseudarthrosis following spinal fusion (Primary Dx); MD Meghan Chronic low back pain without sciatica, unspecified back pain laterality; Degeneration of intervertebral disc of lumbar region; Adjacent segment disease with kyphosis; Degenerative scoliosis in adult patient after 12/19/2017 Family History Medical History Relation Name Comments Hypertension Father Diabetes Mother Relation Name Status Comments Father Mother Social History Tobacco Use Types Packs/Day Years Used Date Former Smoker Cigarettes 1 46 Quit: 03/13/2017 Alcohol Use Drinks/Week oz/Week Comments No Sex Assigned at Date Recorded Not on file Job Start Date Occupation Industry Not on file Not on file Not on file Travel History Travel Start Travel End No recent travel history available. Last Filed Vital Signs Not on file Plan of Treatment Health Maintenance Due Date Last Done Comments COLONOSCOPY SCREENING 2004 SHINGLES VACCINES (#1) 2004 INFLUENZA VACCINE 02/05/2019 Implants Implanted Type Area Mechanical Engineering Specialist Device Shelf Model / Serial Identifier Expiration / Lot Date Chip Can Allograft Leader Crshd 30cc 0.1-4mm - [id number] - [id number] Human Tissue N/A: MUSCULOSKELETAL 11/22/2019 [id number] / Implanted: Qty: 1 on 05/16/2017 by Jose Gibson MD Implants N/A TRANSPLANT [id number] / FOUNDATION [id number] Kit Bone Grft Lm Tprd 2.8ml Sm Infuse - [id number] Human Tissue N/A: MEDTRONIC SPINAL 05/07/2019 [id number] / Implanted: Qty: 1 on 05/16/2017 by Jose Gibson MD Implants N/A AND BIOLOGICS / [id number] Chip Canc Allograft Leader Crshd 30cc 0.1-4mm - [id number] - [id number] Human Tissue N/A: MUSCULOSKELETAL 02/01/2020 [id number] / Implanted: Qty: 1 on 05/23/2017 by Jose Gibson MD Implants N/A TRANSPLANT [id number] / FOUNDATION [id number] Chip Canc Allograft Leader Crshd 30cc 0.1-4mm - [id number] - [id number] Human Tissue N/A: MUSCULOSKELETAL 02/01/2020 [id number] / Implanted: Qty: 1 on 05/23/2017 by Jose Gibson MD Implants N/A TRANSPLANT [id number] / FOUNDATION [id number] Kit Bone Grft [facility] Tprd 5.6ml Med Infuse - [id number] Human Tissue N/A: MEDTRONIC SPINAL 09/04/2018 [id number] / Implanted: Qty: 1 on 05/23/2017 by Jose Gibson MD Implants N/A AND BIOLOGICS / [id number] Synmesh 22mm X 28mm 34mm Height (Ti) - (00) Synmesh - [id number] IMPLANT N/A: SYNTHES SPINE [id number] / Implanted: Qty: 1 on 05/16/2017 by Jose Gibson MD DEVICES N/A / 30mm Ao Screw - [id number] [id number] IMPLANT N/A: SYNTHES SPINE [id number] / Implanted: Qty: 1 on 05/16/2017 by Jose Gibson MD DEVICES N/A / Expedium Plus Ti, José Miguel, Str, Ti, 450mm (Hx End) - [id number] [id number] IMPLANT N/A: DEPUY SYNTHES [id number] / Implanted: Qty: 2 on 05/23/2017 by Jose Gibson MD DEVICES N/A SPINE / [place] Iexp Ti [facility] X25 Set Screw - [id number] [id number] IMPLANT N/A: DEPUY SYNTHES [id number] / Implanted: Qty: 3 on 05/23/2017 by Jose Gibson MD DEVICES N/A SPINE / Washer For Lg Ti Scr 13mm - [id number] Orthopedic N/A: SYNTHES TRAUMA [id number] / Implanted: Qty: 1 on 05/16/2017 by Jose Gibson MD Trauma N/A AND RECON / Implants Screw Spinal Set Si Ti 6.35mm Expedium - [id number] Spinal N/A: DEPUY SPINE [id number] / Implanted: Qty: 16 on 05/23/2017 by oJse Gibson MD Implants N/A / Kit Hemostatic Matrix W/Thrombin 8ml Surgiflo - [id number] Surgical N/A: ETHICON - 09/04/2018 [id number] / Implanted: Qty: 1 on 05/16/2017 by Jose Gibson MD Implants; N/A / Expanders; [id number] Extenders; Surgical Wires Kit Hemostatic Matrix W/Thrombin 8ml Surgiflo - [id number] Surgical N/A: ETHICON - 09/04/2018 [id number] / Implanted: Qty: 1 on 05/23/2017 by Jose Gibson MD Implants; N/A / Expanders; [id number] Extenders; Surgical Wires Procedures Procedure Name Priority Date/Time Associated Diagnosis Comments XR SPINE SCOLIOSIS Routine 05/14/2018 10:29 Pseudarthrosis Results for this 2-3 VIEWS AM TUBE ROLLER following spinal fusion procedure are in Chronic low back pain the results without sciatica, section. unspecified back pain laterality Degeneration of intervertebral disc of lumbar region Adjacent segment disease with kyphosis Degenerative scoliosis in adult patient after 12/19/2017 Results XR Spine Scoliosos 2-3 Views (05/14/2018 10:29 AM TUBE ROLLER) Specimen Narrative Performed At [facility] lateral scoliosis x-ray shows instrumentation from the thoracolumbar HM RADIANT spine to the pelvis with multilevel interbody instrumentation.The patient has no evidence of adjacent segment kyphosis or hardware failure. There is no evidence of nonunion or pseudoarthrosis at this time.Severe degenerative changes are noted in the cervical thoracic and lumbar spine. Performing Organization Address City/State/Zipcode Phone Number [facility] [address] [place] [address] after 12/19/2017 Insurance Payer Benefit Plan / Subscriber ID Effective Dates Phone Address Type Group HUMANA MEDICARE HUMANA MEDICARE xxxxxxxxx 2016-Present PPO PPO/PFFS/[facility] Advance Directives Patient has advance care planning documents on file. For more information, please contact:Satish Mitchell[address] [place] [address]
[2018-12-20 11:42] LABS: Urine Blood NEGATIVE (NEG); Urine Glucose NEGATIVE (NEG); Urine Protein 2+ (NEG); Urine Specific Gravity 1.025 (1.005-1.030)
[2018-12-20 11:48] LABS: Absolute Lymphocytes (CBC) 1.8 K/uL (0.7-4.9); Absolute Monocytes 0.7 K/uL (0.1-1.3); Absolute Neutrophil 4.8 K/uL (1.8-8.0); Basophils % 0.6 % (0-1.3); Eosinophils % 0.4 % (0-4.4); Hematocrit 45.7 % (39.6-49.0); Lymphocytes % 24.3 % (15.3-44.8); MPV 7.8 fL (7.6-11.3); Monocytes % 9.9 % (3.3-12.3); RBC Red Blood Cell Count 5.26 M/uL (4.33-5.43)
[2018-12-20 12:23] LABS: ALT/SGPT 22 U/L (12-78); AST/SGOT 26 U/L (15-37); Albumin 4.2 g/dL (3.4-5.0); Alkaline Phosphatase 61 U/L (45-117); BUN Blood Urea Nitrogen 23 mg/dL (7-18); Bicarbonate 23 mmol/L (21-32); Bilirubin Direct < 0.1 mg/dL (0-0.2); Bilirubin Total 0.5 mg/dL (0.2-1.0); Glucose Level 102 mg/dL (74-106); Lipase 103 U/L (73-393); Potassium 3.9 mmol/L (3.5-5.1); Protein, Total 7.7 g/dL (6.4-8.2); Sodium Level 143 mmol/L (136-145)
--- NOTE | 2018-12-20 13:02 | RAD REPORT ---
EXAM DESCRIPTION: CTAbdomen Pelvis W Contrast - 12/20/2018 12:50 pm CLINICAL HISTORY: Abdominal pain. FLANK PAIN COMPARISON: No comparisons TECHNIQUE: Biphasic CT imaging of the abdomen and pelvis was performed with 100 ml non-ionic IV cont rast. All CT scans are performed using dose optimization technique as appropriate and may include automated exposure control or mA/KV adjustment according to patient size. FINDINGS: Diffuse COPD is present in the lung bases. Mild fatty liver. Cholecystectomy clips. The spleen, pancreas, adrenal glands and kidneys show no acu te process. Small benign bilateral renal cysts. No bowel obstruction, free air, free fluid or abscess. The appendix is not identified as a discrete structure, however, no secondary findings of appendicitis are identified. No evidence of significan t lymphadenopathy. Evidence of previous right inguinal hernia repair. Extensive hardware is present in the spine without complication evident. IMPRESSION: No acute intra-abdominal or pelvic finding.
--- NOTE | 2018-12-20 13:25 | ER ---
Nurse's Notes [facility] Name: Asher Reinoso Age: 63 yrs Sex: Male : 1955 Arrival Date: 12/20/2018 Time: 10:34 Bed 8 Private MD: Will Quick Diagnosis: Muscle spasm of back Presentation: 12/20 10:57 Presenting complaint: Patient states: L side pain radiating to L mid back since Saturday, ph diarrhea since yesterday, denies fever, N/V. Transition of care: patient was not received from another setting of care. Onset of symptoms was December 20, 2018. Risk Assessment: Do you want to hurt yourself or someone else? Patient reports no desire to harm self or others. Initial Sepsis Screen: Does the patient meet any 2 criteria? No. Patient's initial sepsis screen is negative. Does the patient have a suspected source of infection? No. Patient's initial sepsis screen is negative. Care prior to arrival: None. 10:57 Method Of Arrival: Ambulatory ph 10:57 Acuity: DENZEL 3 ph Historical: - Allergies: 11:00 NKA; ph - Home Meds: 11:00 None [Active]; ph - PMHx: 11:00 None; ph - PSHx: 11:00 Hernia repair; back sx w/ hardware; Cholecystectomy; Appendectomy; Knee surgery; ph - Immunization history:: Adult Immunizations unknown. - Social history:: Smoking status: Patient/guardian denies using tobacco, the patient reports quitting approximately 1 years ago. - Ebola Screening: : No symptoms or risks identified at this time. Screenin:36 Abuse screen: Denies threats or abuse. Denies injuries from another. Nutritional ph screening: No deficits noted. Tuberculosis screening: No symptoms or risk factors identified. Fall Risk None identified. Assessment: 11:00 General: Appears in no apparent distress. comfortable, slender, well groomed, Behavior ph is calm, cooperative, appropriate for age, Denies fever, chills. Pain: Complains of pain in anterior aspect of right lateral abdomen, posterior aspect of right lateral abdomen and left upper quadrant Pain radiates to left mid back Pain currently is 8 out of 10 on a pain scale. Quality of pain is described as crampy, sharp, Pain began 6 days ago. Neuro: Level of Consciousness is awake, alert, obeys commands, Oriented to person, place, time, situation. Cardiovascular: Capillary refill < 3 seconds in bilateral fingers Patient's skin is warm and dry. Respiratory: Airway is patent Respiratory effort is even, unlabored. GI: Abdomen is flat, non-distended, Bowel sounds present X 4 quads. Abd is soft and non tender X 4 quads. Reports upper abdominal pain, diarrhea, Patient currently denies nausea, vomiting. : Denies burning with urination, inability to void, urinary frequency. Derm: Skin is intact, is healthy with good turgor, Skin is pink, warm \T\ dry. Musculoskeletal: Circulation, motion, and sensation intact. Range of motion: intact in all extremities. 11:40 Reassessment: Patient appears in no apparent distress at this time. Patient and/or ph family updated on plan of care and expected duration. Pain level reassessed. Patient is alert, oriented x 3, equal unlabored respirations, skin warm/dry/pink. Pt resting quietly, reports that pain has decreased to 5/10 and denies nausea, awaiting lab results and CT scan. 13:00 Reassessment: Patient appears in no apparent distress at this time. Patient and/or ph family updated on plan of care and expected duration. Pain level reassessed. Patient is alert, oriented x 3, equal unlabored respirations, skin warm/dry/pink. Pt reports that pain has increased to 7/10, denies nausea, ERP notified, see MAR. 13:45 Reassessment: Patient appears in no apparent distress at this time. Patient and/or ph family updated on plan of care and expected duration. Pain level reassessed. Patient is alert, oriented x 3, equal unlabored respirations, skin warm/dry/pink. Pt reports that pain has decreased to 1/10 after IV medication, d/c home w/ family. Vital Signs: 10:58 BP 162 / 105; Pulse 84; Resp 18; Temp 98.4; Pulse Ox 99% on R/A; Weight 82.55 kg; ph Height 5 ft. 10 in. (177.80 cm); Pain 8/10; 11:41 BP 159 / 107; Pulse 63; Resp 18; Pulse Ox 98% on R/A; ph 13:00 BP 157 / 103; Pulse 67; Resp 18; Pulse Ox 99% on R/A; Pain 7/10; ph 13:45 BP 136 / 87; Pulse 66; Resp 16; Temp 97.9; Pulse Ox 100% on R/A; Pain 1/10; ph 10:58 Body Mass Index 26.11 (82.55 kg, 177.80 cm) ph ED Course: 10:34 Patient arrived in ED. ag5 10:35 Will Quick MD is Private Physician. ag5 10:37 [facility] Gil [facility] jr8 10:37 Steven Tom MD is Attending Physician. jr8 10:57 Rosana Cramer, LEENA is Primary Nurse. ph 10:58 Triage completed. ph 11:01 Arm band placed on Patient placed in an exam room, on a stretcher, on oxygen. ph 11:25 Inserted saline lock: 20 gauge in right forearm, using aseptic technique. ph 11:36 Patient has correct armband on for positive identification. Placed in gown. Bed in low ph position. Call light in reach. Side rails up X 1. Pulse ox on. NIBP on. Door closed. Noise minimized. Warm blanket given. Pillow given. Head of bed elevated. 12:50 CT completed. Patient tolerated procedure well. Patient moved back from CT. bq 12:52 CT Abd/Pelvis - IV Contrast Only In Process Unspecified. EDMS 13:24 Will Quick MD is Referral Physician. jr8 13:55 No provider procedures requiring assistance completed. IV discontinued, intact, ph bleeding controlled, No redness/swelling at site. Pressure dressing applied. Administered Medications: 11:28 Drug: Zofran 4 mg Route: IVP; Site: right forearm; ph 12:00 Follow up: Response: No adverse reaction ph 11:30 Drug: fentaNYL (PF) 75 mcg Route: IVP; Site: right forearm; ph 12:00 Follow up: Response: No adverse reaction; Pain is decreased ph 13:30 Drug: Valium 5 mg Route: IVP; Site: right forearm; em 13:45 Follow up: Response: No adverse reaction; Pain is decreased ph Outcome: 13:25 Discharge ordered by . jr8 13:55 Patient left the ED. iw 13:55 Discharged to home ambulatory, with family. ph 13:55 Condition: good 13:55 Discharge instructions given to patient, Instructed on discharge instructions, follow up and referral plans. medication usage, Demonstrated understanding of instructions, follow-up care, medications, Prescriptions given X 2. Signatures: Dispatcher [employer] Leanna Anaya Edgar, BAR STEWARD BAR STEWARD Antonette Ellis, LEENA RN Edi Cervantes PA PA jr8 Rosana Cramer RN RN ph [place], [facility]
--- NOTE | 2018-12-20 13:25 | EDPHYS ---
Physician Documentation [facility] Name: Asher Reinoso Age: 63 yrs Sex: Male : 1955 Arrival Date: 12/20/2018 Time: 10:34 Bed 8 Private MD: Will Quick ED Physician Steven Tom HPI: 12/20 11:56 This 63 yrs old Male presents to ER via Ambulatory with complaints of SIDE jr8 PAIN. 11:56 The patient complains of pain in the left flank. The pain does not radiate. Onset: The jr8 symptoms/episode began/occurred acutely, 3 day(s) ago. Modifying factors: The symptoms are alleviated by nothing. the symptoms are aggravated by movement. Associated signs and symptoms: The patient has no apparent associated signs or symptoms. Severity of pain: At its worst the pain was moderate in the emergency department the pain is unchanged. The patient has not experienced similar symptoms in the past. The patient has not recently seen a physician. Patient stated that he has had a nagging pressure like pain to left flank region for a few days now. Getting worse and now having it with movement. Had a couple days of diarrhea as well which resolved. Denies any other symptoms . Historical: - Allergies: 11:00 NKA; ph - Home Meds: 11:00 None [Active]; ph - PMHx: 11:00 None; ph - PSHx: 11:00 Hernia repair; back sx w/ hardware; Cholecystectomy; Appendectomy; Knee surgery; ph - Immunization history:: Adult Immunizations unknown. - Social history:: Smoking status: Patient/guardian denies using tobacco, the patient reports quitting approximately 1 years ago. - Ebola Screening: : No symptoms or risks identified at this time. ROS: 11:56 Eyes: Negative for injury, pain, redness, and discharge, ENT: Negative for injury, jr8 pain, and discharge, Neck: Negative for injury, pain, and swelling, Cardiovascular: Negative for chest pain, palpitations, and edema, Respiratory: Negative for shortness of breath, cough, wheezing, and pleuritic chest pain, MS/Extremity: Negative for injury and deformity, Skin: Negative for injury, rash, and discoloration, Neuro: Negative for headache, weakness, numbness, tingling, and seizure. 11:56 Abdomen/GI: Positive for diarrhea, Negative for abdominal pain, nausea and vomiting, abdominal cramps, abdominal distension, anorexia, dysphagia, hematemesis, black/tarry stool, rectal pain, rectal bleeding, bowel incontinence, flatulence. 11:56 Back: Positive for flank pain, on the left. Exam: 11:56 Eyes: Pupils equal round and reactive to light, extra-ocular motions intact. Lids and jr8 lashes normal. Conjunctiva and sclera are non-icteric and not injected. Cornea within normal limits. Periorbital areas with no swelling, redness, or edema. ENT: Nares patent. No nasal discharge, no septal abnormalities noted. Tympanic membranes are normal and external auditory canals are clear. Oropharynx with no redness, swelling, or masses, exudates, or evidence of obstruction, uvula midline. Mucous membranes moist. Neck: Trachea midline, no thyromegaly or masses palpated, and no cervical lymphadenopathy. Supple, full range of motion without nuchal rigidity, or vertebral point tenderness. No Meningismus. Cardiovascular: Regular rate and rhythm with a normal S1 and S2. No gallops, murmurs, or rubs. Normal PMI, no JVD. No pulse deficits. Respiratory: Lungs have equal breath sounds bilaterally, clear to auscultation and percussion. No rales, rhonchi or wheezes noted. No increased work of breathing, no retractions or nasal flaring. Abdomen/GI: Soft, non-tender, with normal bowel sounds. No distension or tympany. No guarding or rebound. No evidence of tenderness throughout. Back: No spinal tenderness. No costovertebral tenderness. Full range of motion. Skin: Warm, dry with normal turgor. Normal color with no rashes, no lesions, and no evidence of cellulitis. MS/ Extremity: Pulses equal, no cyanosis. Neurovascular intact. Full, normal range of motion. Neuro: Awake and alert, GCS 15, oriented to person, place, time, and situation. Cranial nerves II-XII grossly intact. Motor strength 5/5 in all extremities. Sensory grossly intact. Cerebellar exam normal. Normal gait. Vital Signs: 10:58 BP 162 / 105; Pulse 84; Resp 18; Temp 98.4; Pulse Ox 99% on R/A; Weight 82.55 kg; ph Height 5 ft. 10 in. (177.80 cm); Pain 8/10; 11:41 BP 159 / 107; Pulse 63; Resp 18; Pulse Ox 98% on R/A; ph 13:00 BP 157 / 103; Pulse 67; Resp 18; Pulse Ox 99% on R/A; Pain 7/10; ph 13:45 BP 136 / 87; Pulse 66; Resp 16; Temp 97.9; Pulse Ox 100% on R/A; Pain 1/10; ph 10:58 Body Mass Index 26.11 (82.55 kg, 177.80 cm) ph MDM: 10:37 Patient medically screened. jr8 13:22 Data reviewed: vital signs, nurses notes, lab test result(s), radiologic studies, CT jr8 scan. Data interpreted: Pulse oximetry: on room air is 98 %. Interpretation: normal. Counseling: I had a detailed discussion with the patient and/or guardian regarding: the historical points, exam findings, and any diagnostic results supporting the discharge/admit diagnosis, lab results, radiology results, the need for outpatient follow up, a family practitioner, to return to the emergency department if symptoms worsen or persist or if there are any questions or concerns that arise at home. Response to treatment: the patient's symptoms have markedly improved after treatment. ED course: Labs and imaging unremarkable. Explained to patient that pain is most likely musculoskeletal in nature. Tried Valium for the pain and suspected spasm which markedly improved patients pain. Will d/c home on medication. To f/u with PCP . 12/20 10:54 Order name: Urine Dipstick--Ancillary (enter results); Complete Time: 11:50 mo 12/20 10:55 Order name: Basic Metabolic Panel [facility] 12/20 10:55 Order name: CBC with Diff; Complete Time: 11:50 [facility] 12/20 10:55 Order name: Creatinine for Radiology; Complete Time: 12:24 [facility] 12/20 10:55 Order name: Hepatic Function; Complete Time: 12:24 [facility] 12/20 10:55 Order name: Lipase; Complete Time: 12:24 [facility] 12/20 10:55 Order name: IV Saline Lock; Complete Time: 11:36 [facility] 12/20 10:55 Order name: Labs collected and sent; Complete Time: 11:36 [facility] 12/20 10:57 Order name: Basic Metabolic Panel; Complete Time: 12:24 EDPA 12/20 12:24 Order name: CT Abd/Pelvis - IV Contrast Only; Complete Time: 13:06 jr8 Administered Medications: 11:28 Drug: Zofran 4 mg Route: IVP; Site: right forearm; ph 12:00 Follow up: Response: No adverse reaction ph 11:30 Drug: fentaNYL (PF) 75 mcg Route: IVP; Site: right forearm; ph 12:00 Follow up: Response: No adverse reaction; Pain is decreased ph 13:30 Drug: Valium 5 mg Route: IVP; Site: right forearm; em 13:45 Follow up: Response: No adverse reaction; Pain is decreased ph Disposition: 12/21 12:48 Co-signature as Attending Physician, Steven Tom MD. Disposition: 12/20/18 13:25 Discharged to Home. Impression: Muscle spasm of back. - Condition is Stable. - Discharge Instructions: Muscle Cramps and Spasms, Heat Therapy. - Prescriptions for Ibuprofen 800 mg Oral Tablet - take 1 tablet by ORAL route every 12 hours As needed take with food; 20 tablet. Valium 5 mg Oral Tablet - take 1 tablet by ORAL route every 8 hours As needed; 20 tablet. - Medication Reconciliation Form, Thank You Letter, Antibiotic Education, Prescription Opioid Use form. - Follow up: Will Quick MD; When: 5 - 6 days; Reason: Recheck today's complaints, Continuance of care, Re-evaluation by your physician. - Problem is new. - Symptoms have improved. Signatures: Dispatcher [employer] EDPA Jamie Figueredo, BUSINESS CENTER ATTENDANT BUSINESS CENTER ATTENDANT em Antonette Farias RN RN iw Roszak, Josh, PA PA jr8 Rosana Cramer RN RN Steven Tom MD MD Corrections: (The following items were deleted from the chart) 12/20 13:55 13:25 12/20/2018 13:25 Discharged to Home. Impression: Muscle spasm of back. Condition iw is Stable. Forms are Medication Reconciliation Form, Thank You Letter, Antibiotic Education, Prescription Opioid Use. Follow up: Will Quick; When: 5 - 6 days; Reason: Recheck today's complaints, Continuance of care, Re-evaluation by your physician. Problem is new. Symptoms have improved. jr8
[2018-12-20] MEDS ORDERED: DIAZEPAM 10 MG/2 ML INJ SYRINGE ONE (13:29)
[2018-12-20] MEDS ORDERED: FENTANYL CITR 100 MCG/2 ML ONE (19:55)
== END 2018-12-20 13:55 | disposition home or self-care (01) ==
LOC: ER 10:31
DX: M62.830 Muscle spasm of back (principal)
CPT/HCPCS: 85025; 80048; 36415; 80076; 81003; 83690; 74177; 96375; 96374; 99285; Q9967; J3360; J3010

== ENCOUNTER 2019-04-17 09:59 | Emergency (ER) | payer OTHER ==
[2019-04-17 10:54] LABS: Basophils % 0.8 % (0-1.3); Hematocrit 47.6 % (39.6-49.0); Lymphocytes % 21.9 % (15.3-44.8); MPV 7.5 fL (7.6-11.3); RBC Red Blood Cell Count 5.47 M/uL (4.33-5.43)
[2019-04-17 10:55] LABS: Protime INR 1.02
[2019-04-17] MEDS ORDERED: DIAZEPAM 5 MG TABLET ONE (11:02)
--- NOTE | 2019-04-17 11:07 | RAD REPORT ---
EXAM DESCRIPTION: RAD - Chest Pa And Lat (2 Views) - 04/17/2019 10:50 am CLINICAL HISTORY: SOB, productive cough COMPARISON: September 2017 TECHNIQUE: PA and lateral views of the chest were obtained. FINDINGS: The lungs are normal volume. Extensive interstitial and alveolar opacification present in the lower right lung field. In the acute clinical setting this is most likely a right lung base pneum onia. Additionally, there is a 2.8 centimeter focal irregular mass density in the right upper lung field ne w from prior imaging. This is a potential additional site of pneumonia. However, the margins are more irregular and finding is concerning for a mass lesion. Heart size is normal and central vasculature is within normal limits. No pleural effusion or pneumot horax seen. No acute bony finding noted. No aortic abnormality. IMPRESSION: The patient has 2 significant findings on today's examination. There is a moderately large area of interstitial and alveolar opacification in the right lung base hassan spicious for acute pneumonia. Patient also has a 2.8 centimeter focal mass density in the anterior right upper lung field suspiciou s for malignancy.
[2019-04-17 11:14] LABS: ALT/SGPT 17 U/L (12-78); AST/SGOT 27 U/L (15-37); Albumin 3.9 g/dL (3.4-5.0); Alkaline Phosphatase 65 U/L (45-117); BUN Blood Urea Nitrogen 27 mg/dL (7-18); Bicarbonate 24 mmol/L (21-32); Bilirubin Direct 0.1 mg/dL (0-0.2); Bilirubin Total 0.4 mg/dL (0.2-1.0); Glucose Level 103 mg/dL (74-106); Magnesium 2.1 mg/dL (1.8-2.4); NT PRO-BNP 32 pg/mL (<125); Potassium 4.4 mmol/L (3.5-5.1); Sodium Level 140 mmol/L (136-145); Troponin (Emerg Dept Use Only) < 0.02 ng/mL (0.0-0.045)
--- NOTE | 2019-04-17 11:14 | RAD REPORT ---
EXAM DESCRIPTION: RAD - Hand Left 3 View - 04/17/2019 10:50 am CLINICAL HISTORY: Pain and swelling fourth PIP COMPARISON: None. FINDINGS: No fracture, dislocation or periosteal reaction noted. IP joint space narrowing is present . This is most pronounced at the fifth DIP joint. No erosive or destructive component. MCP joints are spared any significant degenerative change. Overall no destructive bone process seen. Soft tissue swelling is evident around the third and fourth PIP joints. No associated calcification i n the soft tissues. Carpal bones and radiocarpal joint space show no significant finding. IMPRESSION: No acute left hand finding. IP joint degenerative changes are present most pronounced at the fifth DIP joint. Soft tissue swelling around the third and fourth PIP joints without spurring or erosion of the joint space and without calcification in the soft tissues.
--- NOTE | 2019-04-17 11:25 | EKG ---
Test Date: 2019-04-17 Test Time: 10:24:12 Pe Manager: IRVING MEASUREMENT RESULTS: Intervals: Rate: 93 VT: 150 QRSD: 74 QT: 350 QTc: 435 [place]: P: 71 VT: 150 QRS: 60 T: 59 INTERPRETIVE STATEMENTS: Normal sinus rhythm Normal ECG Compared to ECG 09/16/2017 13:54:43 Sinus arrhythmia no longer present Electronically Signed On 04-17-19 11:24:37 CDT by Watson Nelson
[2019-04-17] MEDS ORDERED: NA CHLORIDE 0.9% 500 ML ONE (11:41)
[2019-04-17] MEDS ORDERED: ALBUTEROL 2.5 MG/3 ML NEB SOL ONE (12:09)
--- NOTE | 2019-04-17 13:16 | EDPHYS ---
Physician Documentation [facility] Name: Asher Reinoso Age: 63 yrs Sex: Male : 1955 Arrival Date: 04/17/2019 Time: 10:01 Bed 4 Private MD: ED Physician Steven Tom HPI: 04/17 10:26 This 63 yrs old Male presents to ER via Ambulatory with complaints of pm1 Shortness Of Breath, Cough, Congestion. 10:26 The patient has shortness of breath at rest. Onset: The symptoms/episode began/occurred pm1 4 week(s) ago. Duration: The symptoms are continuous, Getting worse the past two days. The patient's shortness of breath is aggravated by light activity, walking to bathroom, is alleviated by nothing. Associated signs and symptoms: Pertinent positives: non-productive cough, back pain different from his typical chronic back pain, Pertinent negatives: chest pain, dizziness, fever, nausea, vomiting. Severity of symptoms: in the emergency department the symptoms are worse. The patient has been recently seen by a physician: the patient's primary care provider, Dr. Colmenares 2 day(s) ago, with similar presenting complaints, follow up on hospitalization for pneumonia. Patient with onset of SOB, cough and congestion 4 weeks ago. Was seen at [facility] ER about 1 week into his symptoms and it was recommended that he be admitted for treatment of his pneumonia. Patient decided to go home on abx therapy instead. Patient presented back to [facility] ER 1 week later and was admitted. Symptoms improved and he was discharged home on April 07. Was taking clarithromycin and Augmentin at home. Has one pill of Augmentin remaining. Saw Dr. Colmenares on Saturday for follow up of hospitalization and was told that his lungs do not sound clear and if symptoms worse to report to the ER for evaluation. Has not smoked for 2 years but has 40 year smoking history. 10:26 Patient injured his left 4th finger when dog pulled on the leash. Swelling and pain to pm1 left 4th PIP. Historical: - Allergies: 10:07 NKA; hb - PSHx: 10:07 Hernia repair; back sx w/ hardware; Cholecystectomy; Appendectomy; Knee surgery; hb - Immunization history:: Adult Immunizations up to date. - Social history:: Smoking status: Patient/guardian denies using tobacco. - Ebola Screening: : No symptoms or risks identified at this time. ROS: 10:26 Constitutional: Negative for fever, chills, and weight loss, Eyes: Negative for injury, pm1 pain, redness, and discharge, ENT: Negative for injury, pain, and discharge, Neck: Negative for injury, pain, and swelling, Cardiovascular: Negative for chest pain, palpitations, and edema, Abdomen/GI: Negative for abdominal pain, nausea, vomiting, diarrhea, and constipation, Skin: Negative for injury, rash, and discoloration, Neuro: Negative for headache, weakness, numbness, tingling, and seizure. 10:26 Respiratory: Positive for cough, with no reported sputum, shortness of breath. 10:26 Back: Positive for Chronic low back pain. 10:26 MS/extremity: Positive for pain, swelling, of the PIP of left ring finger. Exam: 10:27 Constitutional: This is a well developed, well nourished patient who is awake, alert, pm1 and in no acute distress. Head/Face: Normocephalic, atraumatic. Eyes: Pupils equal round and reactive to light, extra-ocular motions intact. Lids and lashes normal. Conjunctiva and sclera are non-icteric and not injected. Cornea within normal limits. Periorbital areas with no swelling, redness, or edema. ENT: Nares patent. No nasal discharge, no septal abnormalities noted. Tympanic membranes are normal and external auditory canals are clear. Oropharynx with no redness, swelling, or masses, exudates, or evidence of obstruction, uvula midline. Mucous membranes moist. Neck: Trachea midline, no thyromegaly or masses palpated, and no cervical lymphadenopathy. Supple, full range of motion without nuchal rigidity, or vertebral point tenderness. No Meningismus. Chest/axilla: Normal chest wall appearance and motion. Nontender with no deformity. No lesions are appreciated. Cardiovascular: Regular rate and rhythm with a normal S1 and S2. No gallops, murmurs, or rubs. Normal PMI, no JVD. No pulse deficits. 10:27 Abdomen/GI: Soft, non-tender, with normal bowel sounds. No distension or tympany. No guarding or rebound. No evidence of tenderness throughout. Back: No spinal tenderness. No costovertebral tenderness. Full range of motion. Skin: Warm, dry with normal turgor. Normal color with no rashes, no lesions, and no evidence of cellulitis. MS/ Extremity: Pulses equal, no cyanosis. Neurovascular intact. Full, normal range of motion. 10:27 Respiratory: the patient does not display signs of respiratory distress, Respirations: normal, Breath sounds: bronchial sounds, that are mild, are heard diffusely. 10:27 Neuro: Orientation: is normal, Motor: is normal, moves all fours. Vital Signs: 10:06 BP 109 / 81; Pulse 110; Resp 24; Temp 97.8; Pulse Ox 92% on R/A; Weight 79.38 kg; hb Height 5 ft. 11 in. (180.34 cm); Pain 5/10; 11:44 BP 117 / 92; Pulse 93; Resp 18; Pulse Ox 95% on R/A; mg2 12:49 BP 102 / 88; Pulse 83; Resp 18; Pulse Ox 97% on R/A; Pain 0/10; mg2 13:45 BP 126 / 85; Pulse 87; Resp 19; Pulse Ox 97% 2 lpm ; mg2 14:54 BP 141 / 106; Pulse 94; Resp 18; Pulse Ox 95% on R/A; mh5 15:31 BP 134 / 87; Pulse 95; Resp 16; Temp 97.9; Pulse Ox 94% ; bp 10:06 Body Mass Index 24.41 (79.38 kg, 180.34 cm) hb MDM: 10:09 Patient medically screened. pm1 11:01 ED course: Patient complaining of left rib cage muscle spasming that is normal and pm1 chronic for him. Typically takes Valium daily and forgot to take it this AM. Requesting his normal dosage of Valium 5mg for his pain. 11:30 Physician consultation: Ruben Colmenares DO was called at 11:31, was contacted at 11:31, pm1 regarding patient's condition, Will provide us with imaging results from admission at [facility]. Saw the patient 2 days ago and instructed the patient to contact him if no improvement in his symptoms on Saturday and will extend the antibiotics if necessary. Patient called him and told him that he is going to the ER today. 12:54 Data reviewed: vital signs. Data interpreted: Pulse oximetry: on room air is 97 %. pm1 Interpretation: normal. 13:23 Physician consultation: Ruben Parhamnathalie was called at 13:23, was contacted at 13:23, pm1 regarding patient's condition, would like CT scan of chest. 15:01 Physician consultation: Ruben Colmenares DO was called at 15:01, was contacted at 15:01, pm1 regarding patient's condition, Discussed CT chest finding with Dr. Colmenares. He would like the patient to stay but informed him that the patient has stated to me multiple times prior to ordering CT chest that he would like to go home instead of being admitted. Dr. Colmenares would like me to discuss the CT findings with the patient and see if will change his mind to stay in the hospital. If the patient does not want to stay, recommends quinolone for treatment of pneumonia and will follow up with the patient for biopsy of lung mass and referral to oncology. 15:09 Counseling: I had a detailed discussion with the patient and/or guardian regarding: the pm1 historical points, exam findings, and any diagnostic results supporting the discharge/admit diagnosis, lab results, radiology results, the need for further work-up and treatment in the hospital. 15:09 Refusal of service: The patient/guardian displays adequate decision making capability pm1 and despite a detailed discussion of alternatives, benefits, risks, and consequences refuses: Admission to the hospital for further work-up and treatment, Patient wants to go home to follow up with his PCP but said he will return if his symptoms get worse. 15:09 ED course: Informed patient that Dr. Colmenares would like him to stay in the hospital, pm1 but patient still wants to go home. 15:29 ED course: Daughter reports that patient is feeling anxious about diagnosis of lung pm1 mass and requested medication for anxiety. Will give patient some ativan. 04/17 10:19 Order name: Basic Metabolic Panel; Complete Time: 11:15 pm1 04/17 10:19 Order name: CBC with Diff; Complete Time: 11:09 pm1 04/17 10:19 Order name: LFT's; Complete Time: 11:15 pm1 04/17 10:19 Order name: Magnesium; Complete Time: 11:15 pm1 04/17 10:19 Order name: NT PRO-BNP; Complete Time: 11:15 pm1 04/17 10:19 Order name: PT-INR; Complete Time: 11:09 pm1 04/17 10:19 Order name: Troponin (emerg Dept Use Only); Complete Time: 11:15 pm1 04/17 10:19 Order name: Procalcitonin; Complete Time: 11:53 pm1 04/17 10:19 Order name: Lactate; Complete Time: 11:53 pm1 04/17 10:19 Order name: Blood Culture Adult (2) pm1 04/17 10:19 Order name: Chest Pa And Lat (2 Views) XRAY; Complete Time: 11:11 pm1 04/17 10:22 Order name: Hand Left 3 View XRAY; Complete Time: 11:18 pm1 04/17 13:28 Order name: CT Chest W/ Con; Complete Time: 14:57 pm1 04/17 10:19 Order name: EKG; Complete Time: 10:20 pm1 04/17 10:19 Order name: Cardiac monitoring; Complete Time: 10:44 pm1 04/17 10:19 Order name: EKG - Nurse/Tech; Complete Time: 10:44 pm1 04/17 10:19 Order name: IV Saline Lock; Complete Time: 10:44 pm1 04/17 10:19 Order name: Labs collected and sent; Complete Time: 10:44 pm1 04/17 10:19 Order name: O2 Per Protocol; Complete Time: 10:44 pm1 04/17 10:19 Order name: O2 Sat Monitoring; Complete Time: 10:44 pm1 EC:31 Rate is 93 beats/min. Rhythm is regular, Normal Sinus Rhythm with No ectopy. No Q pm1 waves. T waves are Normal. No ST changes noted. Clinical impression: Normal ECG. Administered Medications: 11:04 Drug: Valium 5 mg Route: PO; mg2 11:44 Follow up: Response: No adverse reaction; Marked relief of symptoms mg2 11:44 Drug: NS 0.9% 500 ml Route: IV; Rate: bolus; Site: right antecubital; mg2 12:49 Follow up: Response: No adverse reaction; IV Status: Completed infusion; IV Intake: mg2 500ml 12:13 Drug: Albuterol 5 mg Route: Inhalation; mg2 12:49 Follow up: Response: No adverse reaction; Marked relief of symptoms mg2 15:15 Drug: LevaQUIN 500 mg Route: PO; bp 15:30 Follow up: Response: No adverse reaction bp 15:30 Drug: Ativan 0.5 mg Route: PO; bp 15:30 Follow up: Response: Medication administered at discharge. bp Disposition: 04/17/19 15:10 Discharged to Home. Impression: Pneumonia in diseases classified elsewhere, Chronic obstructive pulmonary disease, unspecified, Right upper lung mass. - Condition is Stable. - Discharge Instructions: Chronic Obstructive Pulmonary Disease, Community-Acquired Pneumonia, Adult, Lung Cancer. - Prescriptions for Levaquin 500 mg Oral Tablet - take 1 tablet by ORAL route once daily for 10 days; 10 tablet. Albuterol Sulfate 2.5 mg /3 mL (0.083 %) Inhalation Solution for Nebulization - inhale 1 unit by NEBULIZATION route every 8 hours As needed; 1 box. - Medication Reconciliation Form, Thank You Letter, Antibiotic Education, Prescription Opioid Use form. - Follow up: Emergency Department; When: As needed; Reason: Worsening of condition. Follow up: Private Physician; When: 2 - 3 days; Reason: Recheck today's complaints, Continuance of care, Re-evaluation by your physician. - Problem is new. - Symptoms have improved. Addendum: 04/19/2019 06:57 Co-signature as Attending Physician, Steven Tom MD. g s Signatures: Dispatcher [employer] EDMS Prasanth Villar NP HYDROGRAPHER pm1 Yaa Macdonald, RN RN Steven Tom MD MD gs Peltier, Brian, LEENA RN bp Facudno Zaidi RN RN mg2 Corrections: (The following items were deleted from the chart) 04/17 13:40 13:15 04/17/2019 13:15 Discharged to Home. Impression: Pneumonia in diseases classified pm1 elsewhere. Condition is Stable. Forms are Medication Reconciliation Form, Thank You Letter, Antibiotic Education, Prescription Opioid Use. Follow up: Emergency Department; When: As needed; Reason: Worsening of condition. Follow up: Private Physician; When: 2 - 3 days; Reason: Recheck today's complaints, Continuance of care, Re-evaluation by your physician. Problem is new. Symptoms have improved. pm1 15:20 15:10 04/17/2019 15:10 Discharged to Home. Impression: Pneumonia in diseases classified pm1 elsewhere. Condition is Stable. Forms are Medication Reconciliation Form, Thank You Letter, Antibiotic Education, Prescription Opioid Use. Follow up: Emergency Department; When: As needed; Reason: Worsening of condition. Follow up: Private Physician; When: 2 - 3 days; Reason: Recheck today's complaints, Continuance of care, Re-evaluation by your physician. Problem is new. Symptoms have improved. pm1 15:31 15:20 04/17/2019 15:10 Discharged to Home. Impression: Pneumonia in diseases classified bp elsewhere; Chronic obstructive pulmonary disease, unspecified; Right upper lung mass. Condition is Stable. Discharge Instructions: Community-Acquired Pneumonia, Adult, Chronic Obstructive Pulmonary Disease. Prescriptions for Levaquin 500 mg Oral Tablet - take 1 tablet by ORAL route once daily for 10 days; 10 tablet, Albuterol Sulfate 90 mcg/actuation - inhale 1-2 puff by INHALATION route every 4-6 hours; 1 Inhaler. and Forms are Medication Reconciliation Form, Thank You Letter, Antibiotic Education, Prescription Opioid Use. Follow up: Emergency Department; When: As needed; Reason: Worsening of condition. Follow up: Private Physician; When: 2 - 3 days; Reason: Recheck today's complaints, Continuance of care, Re-evaluation by your physician. Problem is new. Symptoms have improved. pm1
--- NOTE | 2019-04-17 13:16 | ER ---
Nurse's Notes [facility] Name: Asher Reinoso Age: 63 yrs Sex: Male : 1955 Arrival Date: 04/17/2019 Time: 10:01 Bed 4 Private MD: Diagnosis: Pneumonia in diseases classified elsewhere;Chronic obstructive pulmonary disease, unspecified;Right upper lung mass Presentation: 04/17 10:03 Presenting complaint: SOB and productive cough x 3 weeks, worse over last 2 days. hb Recently inpatient at [facility] with pneumonia. Transition of care: patient was not received from another setting of care. Onset of symptoms. Risk Assessment: Do you want to hurt yourself or someone else? Patient reports no desire to harm self or others. Care prior to arrival: None. 10:03 Method Of Arrival: Ambulatory 10:03 Acuity: DENZEL 2 hb 10:47 Initial Sepsis Screen: Does the patient meet any 2 criteria? No. Patient's initial mg2 sepsis screen is negative. Does the patient have a suspected source of infection? No. Patient's initial sepsis screen is negative. Triage Assessment: 10:47 General: Appears in no apparent distress. comfortable, Behavior is calm, cooperative. mg2 Respiratory: Onset: The symptoms/episode began/occurred gradually, the patient has mild shortness of breath. Historical: - Allergies: 10:07 NKA; hb - PSHx: 10:07 Hernia repair; back sx w/ hardware; Cholecystectomy; Appendectomy; Knee surgery; hb - Immunization history:: Adult Immunizations up to date. - Social history:: Smoking status: Patient/guardian denies using tobacco. - Ebola Screening: : No symptoms or risks identified at this time. Screenin:46 Abuse screen: Denies threats or abuse. Denies injuries from another. Nutritional mg2 screening: No deficits noted. Tuberculosis screening: No symptoms or risk factors identified. Fall Risk IV access (20 points). Assessment: 10:46 General: Appears in no apparent distress. comfortable, Behavior is calm, cooperative. mg2 Pain: Denies pain. Neuro: Level of Consciousness is awake, alert, obeys commands, Oriented to person, place, time, situation. Cardiovascular: Capillary refill < 3 seconds Patient's skin is warm and dry. Respiratory: Airway is patent Respiratory effort is even, unlabored, Respiratory pattern is regular, symmetrical. Respiratory: Reports cough and congestion. GI: No signs and/or symptoms were reported involving the gastrointestinal system. : EENT: No signs and/or symptoms were reported regarding the EENT system. Derm: Skin is intact, is healthy with good turgor, Skin is pink, warm \T\ dry. normal. Musculoskeletal: Circulation, motion, and sensation intact. Capillary refill < 3 seconds. 10:47 Reassessment: patient sent to xray via wheelchair. mg2 11:04 Cardiovascular: Rhythm is sinus rhythm. Respiratory: mg2 11:04 Reassessment: patient complained pain on his left side of the trunk- patient is taking mg2 valium daily for spasm on that area. provider informed and pain addressed. Vital Signs: 10:06 BP 109 / 81; Pulse 110; Resp 24; Temp 97.8; Pulse Ox 92% on R/A; Weight 79.38 kg; hb Height 5 ft. 11 in. (180.34 cm); Pain 5/10; 11:44 BP 117 / 92; Pulse 93; Resp 18; Pulse Ox 95% on R/A; mg2 12:49 BP 102 / 88; Pulse 83; Resp 18; Pulse Ox 97% on R/A; Pain 0/10; mg2 13:45 BP 126 / 85; Pulse 87; Resp 19; Pulse Ox 97% 2 lpm ; mg2 14:54 BP 141 / 106; Pulse 94; Resp 18; Pulse Ox 95% on R/A; mh5 15:31 BP 134 / 87; Pulse 95; Resp 16; Temp 97.9; Pulse Ox 94% ; bp 10:06 Body Mass Index 24.41 (79.38 kg, 180.34 cm) hb ED Course: 10:01 Patient arrived in ED. mr 10:06 Triage completed. hb 10:06 Arm band placed on. hb 10:08 Prasanth Villar NP is PHCP. pm1 10:09 Steven Tom MD is Attending Physician. pm1 10:15 Facundo Zaidi, LEENA is Primary Nurse. mg2 10:44 No provider procedures requiring assistance completed. Inserted saline lock: 20 gauge mg2 in right antecubital area, using aseptic technique. Blood collected. 10:45 Chest Pa And Lat (2 Views) XRAY In Process Unspecified. EDMS 10:45 Hand Left 3 View XRAY In Process Unspecified. EDMS 10:47 Patient has correct armband on for positive identification. compliance monitor on. Pulse mg2 ox on. NIBP on. Door closed. Warm blanket given. 12:59 WALKED WITH PATIENT AND TOLERATED IT WELL .. 5 13:56 CT Chest W/ Con In Process Unspecified. EDMS 15:30 IV discontinued, intact, bleeding controlled, No redness/swelling at site. Pressure bp dressing applied. Administered Medications: 11:04 Drug: Valium 5 mg Route: PO; mg2 11:44 Follow up: Response: No adverse reaction; Marked relief of symptoms mg2 11:44 Drug: NS 0.9% 500 ml Route: IV; Rate: bolus; Site: right antecubital; mg2 12:49 Follow up: Response: No adverse reaction; IV Status: Completed infusion; IV Intake: mg2 500ml 12:13 Drug: Albuterol 5 mg Route: Inhalation; mg2 12:49 Follow up: Response: No adverse reaction; Marked relief of symptoms mg2 15:15 Drug: LevaQUIN 500 mg Route: PO; bp 15:30 Follow up: Response: No adverse reaction bp 15:30 Drug: Ativan 0.5 mg Route: PO; bp 15:30 Follow up: Response: Medication administered at discharge. bp Intake: 12:49 IV: 500ml; Total: 500ml. mg2 Outcome: 13:15 Discharge ordered by MD. pm1 15:10 Discharge ordered by MD. pm1 15:30 Discharged to home ambulatory, with family. bp 15:30 Condition: stable 15:30 Discharge instructions given to patient, Instructed on discharge instructions, follow up and referral plans. medication usage, Demonstrated understanding of instructions, follow-up care, medications, Prescriptions given X 3. 15:31 Patient left the ED. bp Signatures: Dispatcher [employer] EDIL Natalia Sales Patrick, SUPERVISOR FISHING SUPERVISOR FISHING pm1 Yaa Macdonald, Tabatha Kaur RN [facility] Jarrell Pyel RN RN bp Gardose, Michele, RN RN mg2
--- NOTE | 2019-04-17 14:38 | RAD REPORT ---
EXAM DESCRIPTION: CT - Thorax W/ Con - 04/17/2019 1:56 pm CLINICAL HISTORY: Cough COMPARISON: April 17, 2019 x-ray TECHNIQUE: Computed axial tomography of the chest was obtained. 100 cc Isovue 300 was administered i ntravenously. All CT scans are performed using dose optimization technique as appropriate and may include automated exposure control or mA/KV adjustment according to patient size. FINDINGS: Marked mediastinal and bilateral hilar lymphadenopathy. Right hilar lymph nodes measure up to 2.8 centimeters short axis. Right paratracheal lymph node measures 3.1 centimeters. A posterior s ubcarinal lymph node measures 4 centimeters. Several additional enlarged lymph nodes. Several pericar diac lymph nodes 3.4 centimeter anterior right upper lobe nodule Moderate right lower lobe opacities Marked COPD The esophagus is compressed by the lymphadenopathy. A pleural effusion is not present. A pericardial effusion is not seen. IMPRESSION: 3.4 centimeter right upper lobe nodule probably bronchogenic carcinoma Marked mediastinal and hilar lymphadenopathy Moderate right lower lobe opacity may represent pneumonia or postobstructive pneumonitis
[2019-04-17] MEDS ORDERED: levoFLOXacin 500 MG TAB ONE (15:17)
[2019-04-17] MEDS ORDERED: LORAZEPAM 0.5 MG TABLET ONE (15:23)
[2019-04-17 15:47] VITALS: BP 134/87; TEMP 97.9; O2SAT 94
== END 2019-04-17 15:31 | disposition home or self-care (01) ==
LOC: ER 09:59
DX: J18.9 Pneumonia, unspecified organism (principal); J44.9 Chronic obstructive pulmonary disease, unspecified; R91.8 Other nonspecific abnormal finding of lung field
CPT/HCPCS: 93005; 87040 ×2; 85025; 80048; 36415; 83735; 85610; 80076; 83605; 84484; 84145; 83880; 71260; 71046; 73130; 96360; 99285; Q9967; J7040

== ENCOUNTER 2019-04-29 08:02 | Inpatient (IN) | payer OTHER ==
[2019-04-29 08:57] LABS: Basophils % 0.9 % (0-1.3); Hematocrit 42.3 % (39.6-49.0); Lymphocytes % 13.3 % (15.3-44.8); MPV 7.5 fL (7.6-11.3); RBC Red Blood Cell Count 4.85 M/uL (4.33-5.43)
[2019-04-29] MEDS ORDERED: ONDANSETRON 4 MG/2 ML VIAL ONE (08:59)
[2019-04-29] MEDS ORDERED: MORPHINE 4 MG/ML SYR ONE ×3 (08:59→14:12)
[2019-04-29 09:00] LABS: Protime INR 1.04
[2019-04-29] MEDS ORDERED: ALBUTEROL 2.5 MG/3 ML NEB SOL ONE (09:01)
[2019-04-29 09:20] LABS: ALT/SGPT 19 U/L (12-78); AST/SGOT 30 U/L (15-37); Albumin 3.4 g/dL (3.4-5.0); Alkaline Phosphatase 50 U/L (45-117); BUN Blood Urea Nitrogen 28 mg/dL (7-18); Bicarbonate 23 mmol/L (21-32); Bilirubin Direct < 0.1 mg/dL (0-0.2); Bilirubin Total 0.4 mg/dL (0.2-1.0); Glucose Level 117 mg/dL (74-106); Magnesium 2.1 mg/dL (1.8-2.4); NT PRO-BNP 43 pg/mL (<125); Potassium 4.2 mmol/L (3.5-5.1); Protein, Total 7.4 g/dL (6.4-8.2); Sodium Level 140 mmol/L (136-145); Troponin (Emerg Dept Use Only) < 0.02 ng/mL (0.0-0.045)
[2019-04-29] MEDS ORDERED: NA CHLORIDE 0.9% 500 ML ONE (09:57)
--- NOTE | 2019-04-29 10:16 | RAD REPORT ---
EXAM DESCRIPTION: CT - Chest For Pe Angio - 04/29/2019 9:49 am CLINICAL HISTORY: Chest pain COMPARISON: April 17, 2019 TECHNIQUE: Dynamically enhanced axial 3 mm thick images of the chest were obtained during administra tion of <100> mL Isovue 370 IV contrast. Coronal and oblique reconstruction images were generated and reviewed. Exam utilizes a protocol for optimal evaluation of pulmonary arterial tree. Maximum intensity projections 3D imaging was utilized All CT scans are performed using dose optimization technique as appropriate and may include automated exposure control or mA/KV adjustment according to patient size. FINDINGS: A pulmonary embolus is not seen. A thoracic aortic aneurysm is not noted. A pleural effusion is not seen. A pericardial effusion is not seen. Marked mediastinal and bilateral hilar lymphadenopathy without significant change. 3.4 centimeter right upper lobe nodule is unchanged. Mild worsening in a right lower lobe and right m iddle lobe opacities Dilated esophagus secondary to compression by the lymphadenopathy. Superior vena cava is compressed b y lymphadenopathy. IMPRESSION: Negative for a pulmonary embolism. Marked mediastinal and hilar lymphadenopathy 3.4 centimeter right upper lobe nodule likely bronchogenic carcinoma Mild worsening in the moderate to marked right lower lobe and right middle lobe opacities which may r epresent pneumonia or postobstructive pneumonitis COPD
--- NOTE | 2019-04-29 10:39 | EKG ---
Test Date: 2019-04-29 Test Time: 09:09:39 Floor Finisher Helper: IRVING MEASUREMENT RESULTS: Intervals: Rate: 88 IL: 148 QRSD: 76 QT: 358 QTc: 433 Williamson: P: 71 IL: 148 QRS: 73 T: 64 INTERPRETIVE STATEMENTS: Normal sinus rhythm Normal ECG Compared to ECG 04/17/2019 10:24:12 No significant changes Electronically Signed On 04-29-19 10:39:09 CDT by Watson Nelson
--- NOTE | 2019-04-29 10:45 | RAD REPORT ---
EXAM DESCRIPTION: RADChest Single View04/29/2019 8:59 am CLINICAL HISTORY: Shortness breath COMPARISON: April 17, 2019 FINDINGS: Worsening in right basilar opacities No change in a right upper lobe nodule. No change in mediastinal and hilar lymphadenopathy. The heart is normal size COPD IMPRESSION: Worsening in right basilar opacities could represent pneumonia or postobstructive pneumo nitis
--- NOTE | 2019-04-29 11:05 | ER ---
Nurse's Notes [facility] Name: Asher Reinoso Age: 64 yrs Sex: Male : 1955 Arrival Date: 04/29/2019 Time: 08:03 Bed 5 Private MD: Xavier Mcallister C Diagnosis: Pneumonia, unspecified organism;Failed outpatient antibiotic therapy Presentation: 04/29 08:11 Presenting complaint: Patient states: Recently diagnosed with lung CA. Patient reports ss he has had increased SOB, back pain and R sided CP x 2 weeks. Transition of care: patient was not received from another setting of care. Onset of symptoms is unknown. Risk Assessment: Do you want to hurt yourself or someone else? Patient reports no desire to harm self or others. Initial Sepsis Screen: Does the patient meet any 2 criteria? No. Patient's initial sepsis screen is negative. Does the patient have a suspected source of infection?. Care prior to arrival: None. 08:11 Acuity: DENZEL 3 ss 08:11 Method Of Arrival: Ambulatory ss Historical: - Allergies: 08:13 NKA; ss - PSHx: 08:13 Hernia repair; back sx w/ hardware; Cholecystectomy; Appendectomy; Knee surgery; ss - Immunization history:: Adult Immunizations up to date. - Social history:: Smoking status: Patient/guardian denies using tobacco, the patient reports quitting approximately 2 years ago. - Ebola Screening: : Patient denies exposure to infectious person Patient denies travel to an Ebola-affected area in the 21 days before illness onset. Screenin:51 Abuse screen: Denies threats or abuse. Denies injuries from another. Nutritional ph screening: No deficits noted. Tuberculosis screening: No symptoms or risk factors identified. Fall Risk None identified. Assessment: 09:08 General: Appears in no apparent distress. uncomfortable, slender, well groomed, ph Behavior is cooperative, appropriate for age, anxious, Denies fever. Pain: Complains of pain in anterior aspect of right upper chest and mid back. Neuro: Level of Consciousness is awake, alert, obeys commands, Oriented to person, place, time, situation. Cardiovascular: Reports chest pain, fatigue, shortness of breath, Capillary refill < 3 seconds in bilateral fingers Patient's skin is warm and dry. Rhythm is sinus tachycardia. Respiratory: Reports shortness of breath at rest on exertion cough that is productive, pt reports blood streaked mucus pain with cough pain with movement pain with respiration Airway is patent Respiratory effort is even, unlabored, Respiratory pattern is regular, symmetrical, Breath sounds with wheezes in mediastinum. GI: No signs and/or symptoms were reported involving the gastrointestinal system. Derm: Skin is intact, Skin is pink, warm \T\ dry. Musculoskeletal: Circulation, motion, and sensation intact. Range of motion: intact in all extremities. 10:00 Reassessment: Patient appears in no apparent distress at this time. Patient and/or ph family updated on plan of care and expected duration. Pain level reassessed. Patient is alert, oriented x 3, equal unlabored respirations, skin warm/dry/pink. 11:00 Reassessment: Patient appears in no apparent distress at this time. Patient and/or ph family updated on plan of care and expected duration. Pain level reassessed. Patient is alert, oriented x 3, equal unlabored respirations, skin warm/dry/pink. 12:28 Reassessment: Patient appears in no apparent distress at this time. Patient and/or ph family updated on plan of care and expected duration. Pain level reassessed. Patient is alert, oriented x 3, equal unlabored respirations, skin warm/dry/pink. Dr Kennedy at bedside. 13:30 Reassessment: Patient appears in no apparent distress at this time. Patient and/or ph family updated on plan of care and expected duration. Pain level reassessed. Patient is alert, oriented x 3, equal unlabored respirations, skin warm/dry/pink. 14:46 Reassessment: Patient appears in no apparent distress at this time. Patient and/or ph family updated on plan of care and expected duration. Pain level reassessed. Patient is alert, oriented x 3, equal unlabored respirations, skin warm/dry/pink. 14:55 Reassessment: Patient appears in no apparent distress at this time. Patient and/or ph family updated on plan of care and expected duration. Pain level reassessed. Patient is alert, oriented x 3, equal unlabored respirations, skin warm/dry/pink. Report called to Kadie STERN. Vital Signs: 08:13 BP 159 / 104; Pulse 101; Resp 16; Temp 98.8(TE); Pulse Ox 94% on R/A; Weight 77.11 kg; ss Height 5 ft. 11 in. (180.34 cm); Pain 10/10; 09:14 BP 154 / 97; Pulse 96; Resp 18; Pulse Ox 99% on Nebulizer Mask; ph 10:42 BP 136 / 92; Pulse 100; Resp 17; Pulse Ox 95% on R/A; mh5 12:33 BP 148 / 97; Pulse 102; Resp 20; Pulse Ox 94% on 2 lpm NC; ph 13:43 BP 147 / 96; Pulse 101; Resp 20; Temp 97.8; Pulse Ox 98% on 4 lpm NC; ph 14:42 BP 111 / 81; Pulse 95; Resp 20; Temp 98.7; Pulse Ox 96% on 2 lpm NC; ph 08:13 Body Mass Index 23.71 (77.11 kg, 180.34 cm) ED Course: 08:03 Patient arrived in ED. as 08:03 Xavier Mcallister MD is Private Physician. as 08:06 Johnny Murphy MD is Attending Physician. kdr 08:12 Rosana Cramer, LEENA is Primary Nurse. ph 08:13 Triage completed. ss 08:13 Arm band placed on right wrist. ss 08:15 Prasanth Villar NP is PHCP. pm1 08:16 Johnny Murphy MD is Attending Physician. pm1 08:50 Inserted saline lock: 20 gauge in right forearm, using aseptic technique. Blood ph collected. Oxygen administration via nasal cannula \T\ 2L/min. 08:52 Patient has correct armband on for positive identification. Placed in gown. Bed in low ph position. Call light in reach. Side rails up X 1. Pulse ox on. NIBP on. Door closed. Noise minimized. 08:59 XRAY Chest (1 view) In Process Unspecified. EDMS 09:50 CT Chest For PE Angio In Process Unspecified. EDMS 11:04 Shane Kennedy DO is Hospitalizing Provider. pm1 14:55 No provider procedures requiring assistance completed. Patient admitted, IV remains in ph place. Administered Medications: 09:12 Drug: Albuterol - atroVENT (3:1) (2.5 mg - 0.5 mg) 3 ml Route: Nebulizer; ph 09:58 Follow up: Response: No adverse reaction ph 09:13 Drug: morphine 4 mg Route: IVP; Site: right forearm; ph 09:58 Follow up: Response: No adverse reaction; Pain is decreased ph 09:59 Follow up: Response: RASS: Alert and Calm (0) ph 09:13 Drug: Zofran 4 mg Route: IVP; Site: right forearm; ph 09:59 Follow up: Response: No adverse reaction ph 09:59 Drug: NS 0.9% 500 ml Route: IV; Rate: bolus; Site: right forearm; ph 11:03 Drug: morphine 4 mg Route: IVP; Site: right forearm; ph 12:25 Not Given (Physician Discretion): vancoMYCIN 1 grams IVPB once over 2 hrs pm1 12:25 Not Given (Physician Discretion): Cefepime 2 grams IVPB at 200 ml/hr once over 30 mins; pm1 (mix in NS 100 mL) 14:20 Drug: morphine 4 mg Route: IVP; Site: right forearm; ph Outcome: 11:04 Decision to Hospitalize by Provider. pm1 15:19 Patient left the ED. ph 15:19 Admitted to Tele accompanied by tech, family with patient, via wheelchair, with oxygen, ph with chart. 15:19 Condition: stable 15:19 Instructed on the need for admit. Signatures: Dispatcher [employer] EDMS Johnny Murphy MD MD kdr Martinez, Amelia as Smirch, Shelby, RN RN ss Hall, Patricia, RN RN ph Marinas, Patrick, STEVAN ASSOCIATE PROFESSOR OF PSYCHOLOGY pm1 Tabatha Leo [facility]
--- NOTE | 2019-04-29 11:05 | EDPHYS ---
Physician Documentation [facility] Name: Asher Reinoso Age: 64 yrs Sex: Male : 1955 Arrival Date: 04/29/2019 Time: 08:03 Bed 5 Private MD: Xavier Mcallister C ED Physician Johnny Murphy HPI: 04/29 08:36 This 64 yrs old Male presents to ER via Ambulatory with complaints of pm1 Breathing Difficulty. 08:36 The patient has shortness of breath with light activity. Onset: The symptoms/episode pm1 began/occurred 6 week(s) ago. Duration: The symptoms are continuous, and are markedly worse than the original presentation, with any activity patient has shortness of breath. Feels that he needs oxygen therapy at home. 5 weeks ago, patient was seen at [facility] ER for cough and congestion. He was recommended admission at that time for pneumonia but decided to go home on abx therapy instead. He went back to [facility] ER and was admitted. Was discharged home on clarithromycin and Augmentin at that time. Patient was seen here 12 days ago for the same complaint of shortness of breath. Was diagnosed with pneumonia and lung mass. Patient did not want to stay in the hospital so was discharged home with Levaquin and return precautions. Patient completed the antibiotics 4 days ago. Has followed up with PCP, Darrian, who has ordered biopsies of lung mass. Patient reports that he has been feeling worse for the past 2 days. With any activity or talking he is short of breath and feels that he needs oxygen therapy. Historical: - Allergies: 08:13 NKA; ss - PSHx: 08:13 Hernia repair; back sx w/ hardware; Cholecystectomy; Appendectomy; Knee surgery; ss - Immunization history:: Adult Immunizations up to date. - Social history:: Smoking status: Patient/guardian denies using tobacco, the patient reports quitting approximately 2 years ago. - Ebola Screening: : Patient denies exposure to infectious person Patient denies travel to an Ebola-affected area in the 21 days before illness onset. ROS: 08:36 Constitutional: Negative for fever, chills, and weight loss, Eyes: Negative for injury, pm1 pain, redness, and discharge, ENT: Negative for injury, pain, and discharge, Neck: Negative for injury, pain, and swelling, Cardiovascular: Negative for chest pain, palpitations, and edema. 08:36 Abdomen/GI: Negative for abdominal pain, nausea, vomiting, diarrhea, and constipation, Back: Negative for injury and pain, : Negative for injury, bleeding, discharge, and swelling, MS/Extremity: Negative for injury and deformity, Skin: Negative for injury, rash, and discoloration, Neuro: Negative for headache, weakness, numbness, tingling, and seizure. 08:36 Respiratory: Positive for shortness of breath, Negative for wheezing. Exam: 08:36 Constitutional: This is a well developed, well nourished patient who is awake, alert, pm1 and in no acute distress. Head/Face: Normocephalic, atraumatic. Eyes: Pupils equal round and reactive to light, extra-ocular motions intact. Lids and lashes normal. Conjunctiva and sclera are non-icteric and not injected. Cornea within normal limits. Periorbital areas with no swelling, redness, or edema. ENT: Nares patent. No nasal discharge, no septal abnormalities noted. Tympanic membranes are normal and external auditory canals are clear. Oropharynx with no redness, swelling, or masses, exudates, or evidence of obstruction, uvula midline. Mucous membranes moist. Neck: Trachea midline, no thyromegaly or masses palpated, and no cervical lymphadenopathy. Supple, full range of motion without nuchal rigidity, or vertebral point tenderness. No Meningismus. Chest/axilla: Normal chest wall appearance and motion. Nontender with no deformity. No lesions are appreciated. Cardiovascular: Regular rate and rhythm with a normal S1 and S2. No gallops, murmurs, or rubs. Normal PMI, no JVD. No pulse deficits. 08:36 Abdomen/GI: Soft, non-tender, with normal bowel sounds. No distension or tympany. No guarding or rebound. No evidence of tenderness throughout. Back: No spinal tenderness. No costovertebral tenderness. Full range of motion. Skin: Warm, dry with normal turgor. Normal color with no rashes, no lesions, and no evidence of cellulitis. MS/ Extremity: Pulses equal, no cyanosis. Neurovascular intact. Full, normal range of motion. 08:36 Respiratory: the patient does not display signs of respiratory distress, Respirations: normal, Breath sounds: decreased breath sounds, that are mild, are heard in the right posterior upper lobe, right posterior middle lobe and right posterior lower lobe. 08:36 Neuro: Orientation: is normal, Motor: is normal, moves all fours. Vital Signs: 08:13 BP 159 / 104; Pulse 101; Resp 16; Temp 98.8(TE); Pulse Ox 94% on R/A; Weight 77.11 kg; ss Height 5 ft. 11 in. (180.34 cm); Pain 10/10; 09:14 BP 154 / 97; Pulse 96; Resp 18; Pulse Ox 99% on Nebulizer Mask; ph 10:42 BP 136 / 92; Pulse 100; Resp 17; Pulse Ox 95% on R/A; mh5 12:33 BP 148 / 97; Pulse 102; Resp 20; Pulse Ox 94% on 2 lpm NC; ph 13:43 BP 147 / 96; Pulse 101; Resp 20; Temp 97.8; Pulse Ox 98% on 4 lpm NC; ph 14:42 BP 111 / 81; Pulse 95; Resp 20; Temp 98.7; Pulse Ox 96% on 2 lpm NC; ph 08:13 Body Mass Index 23.71 (77.11 kg, 180.34 cm) ss MDM: 09:12 Patient medically screened. pm1 11:03 Data reviewed: vital signs. Data interpreted: Pulse oximetry: on 2L(s) per nasal pm1 canula, is 95 %. Interpretation:. Counseling: I had a detailed discussion with the patient and/or guardian regarding: the historical points, exam findings, and any diagnostic results supporting the discharge/admit diagnosis, lab results, radiology results, the need for further work-up and treatment in the hospital. 11:03 ED course: Patient's PCP is Dr. Colmenares. pm1 12:22 Physician consultation: in the emergency department to see patient at 12:22, he pm1 discussed the case with Dr. Zelaya. No antibiotic therapy at the moment. Will wait for blood cultures . 04/29 08:30 Order name: Basic Metabolic Panel; Complete Time: 09:25 pm1 04/29 08:30 Order name: CBC with Diff; Complete Time: 09:12 pm1 04/29 08:30 Order name: LFT's; Complete Time: 09:25 pm1 04/29 08:30 Order name: Magnesium; Complete Time: 09:25 pm1 04/29 08:30 Order name: NT PRO-BNP; Complete Time: 09:25 pm1 04/29 08:30 Order name: PT-INR; Complete Time: 09:25 pm1 04/29 08:30 Order name: Troponin (emerg Dept Use Only); Complete Time: 09:25 pm1 04/29 08:30 Order name: XRAY Chest (1 view); Complete Time: 11:01 pm1 04/29 08:30 Order name: Creatinine for Radiology; Complete Time: 09:25 pm1 04/29 09:26 Order name: CT Chest For PE Angio; Complete Time: 10:18 pm1 04/29 11:09 Order name: Blood Culture Adult (2) pm1 04/29 11:09 Order name: Procalcitonin; Complete Time: 13:27 pm1 04/29 11:09 Order name: Lactate; Complete Time: 13:15 pm1 04/29 11:28 Order name: Flu; Complete Time: 13:15 pm1 04/29 08:30 Order name: EKG; Complete Time: 08:31 pm1 04/29 08:30 Order name: Cardiac monitoring; Complete Time: 08:52 pm1 04/29 08:30 Order name: EKG - Nurse/Tech; Complete Time: 08:52 pm1 04/29 08:30 Order name: IV Saline Lock; Complete Time: 08:52 pm1 04/29 08:30 Order name: Labs collected and sent; Complete Time: 08:52 pm1 04/29 08:30 Order name: O2 Per Protocol; Complete Time: 08:52 pm1 04/29 08:30 Order name: O2 Sat Monitoring; Complete Time: 08:53 pm1 Administered Medications: 09:12 Drug: Albuterol - atroVENT (3:1) (2.5 mg - 0.5 mg) 3 ml Route: Nebulizer; ph 09:58 Follow up: Response: No adverse reaction ph 09:13 Drug: morphine 4 mg Route: IVP; Site: right forearm; ph 09:58 Follow up: Response: No adverse reaction; Pain is decreased ph 09:59 Follow up: Response: RASS: Alert and Calm (0) ph 09:13 Drug: Zofran 4 mg Route: IVP; Site: right forearm; ph 09:59 Follow up: Response: No adverse reaction ph 09:59 Drug: NS 0.9% 500 ml Route: IV; Rate: bolus; Site: right forearm; ph 11:03 Drug: morphine 4 mg Route: IVP; Site: right forearm; ph 12:25 Not Given (Physician Discretion): vancoMYCIN 1 grams IVPB once over 2 hrs pm1 12:25 Not Given (Physician Discretion): Cefepime 2 grams IVPB at 200 ml/hr once over 30 mins; pm1 (mix in NS 100 mL) 14:20 Drug: morphine 4 mg Route: IVP; Site: right forearm; ph Disposition: 04/30 09:16 Co-signature as Attending Physician, Johnny Murphy MD I agree with the assessment and kdr plan of care. Disposition: 04/29/19 11:04 Hospitalization ordered by Shane Kennedy for Observation. Preliminary diagnosis are Pneumonia, unspecified organism, Failed outpatient antibiotic therapy. - Bed requested for Telemetry/MedSurg (observation). - Status is Observation. ph - Condition is Stable. - Problem is new. - Symptoms have improved. UTI on Admission? No Signatures: Dispatcher [employer] EDMS Johnny Murphy MD MD [facility] Wilmer Leo em1 Babita Jhaveri RN RN Rosana Cramer RN RN Prasanth Villar, STEVAN NET FISHER pm1 Corrections: (The following items were deleted from the chart) 04/29 11:16 11:04 Hospitalization Ordered by Shane Kennedy DO for Observation. Preliminary pm1 diagnosis is Pneumonia, unspecified organism. Bed requested for Telemetry/MedSurg (observation). Status is Observation. Condition is Stable. Problem is new. Symptoms have improved. UTI on Admission? No. pm1 13:02 11:16 04/29/2019 11:04 Hospitalization Ordered by Shane Kennedy DO for Observation. em1 Preliminary diagnosis is Pneumonia, unspecified organism; Failed outpatient antibiotic therapy. Bed requested for Telemetry/MedSurg (observation). Status is Observation. Condition is Stable. Problem is new. Symptoms have improved. UTI on Admission? No. pm1 15:19 13:02 04/29/2019 11:04 Hospitalization Ordered by Shane Kennedy DO for Observation. ph Preliminary diagnosis is Pneumonia, unspecified organism; Failed outpatient antibiotic therapy. Bed requested for Telemetry/MedSurg (observation). Status is Observation. Condition is Stable. Problem is new. Symptoms have improved. UTI on Admission? No. em1
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
[2019-04-29] MEDS ORDERED: VANCOMYCIN 2 GM in NA CHLORIDE 0.9% 500 ML IVPB ONE (13:00)
[2019-04-29] MEDS ORDERED: ACETAMINOPHEN 500 MG TAB PO PRN (15:06)
[2019-04-29] MEDS ORDERED: BENZONATATE 100 MG CAP PO PRN (15:06)
[2019-04-29] MEDS ORDERED: IPRATROPIUM BROM 0.5MG/2.5ML NEB PRN (15:06)
[2019-04-29] MEDS ORDERED: ALBUTEROL 2.5 MG/3 ML NEB SOL NEB PRN (15:06)
[2019-04-29] MEDS ORDERED: ONDANSETRON 4 MG/2 ML VIAL IV PRN (15:06)
[2019-04-29 15:32] VITALS: BMI 23.3
[2019-04-29] MEDS ORDERED: ENOXAPARIN 40 MG/0.4 ML SQ SCH (16:00)
[2019-04-29] MEDS ORDERED: TRAMADOL HCL 50 MG TAB PO PRN (16:21)
[2019-04-29 17:33] LABS: Urine Appearance CLEAR; Urine Bilirubin NEGATIVE (NEG); Urine Blood NEGATIVE (NEG); Urine Color YELLOW; Urine Glucose NEGATIVE (NEG); Urine Protein NEGATIVE (NEG); Urine Specific Gravity >=1.030 (1.005-1.030); Urine Urobilinogen 0.2 mg/dL (0.2-1.0); Urine pH 5.5 (5.0-7.0)
[2019-04-29 17:36] LABS: Urine Microscopic Reflex NO UMIC
[2019-04-29] MEDS: HYDROCODONE/APAP 7.5/325 MG TAB PO PRN (18:15)
[2019-04-29] MEDS: ARFORMOTEROL TARTRATE 15 MCG/2 ML VIAL.NEB NEB SCH (20:00)
[2019-04-29] MEDS: DIAZEPAM 5 MG TABLET PO PRN (21:43)
[2019-04-29] MEDS: FAMOTIDINE 20 MG TAB PO SCH (21:43)
[2019-04-29] MEDS: predniSONE 20 MG TAB PO SCH (21:43)
[2019-04-30] MEDS: HYDROCODONE/APAP 7.5/325 MG TAB PO PRN ×3 (03:50→20:09)
[2019-04-30 05:42] LABS: Absolute Lymphocytes (CBC) 0.8 K/uL (0.7-4.9); Basophils % 0.5 % (0-1.3); Hematocrit 41.2 % (39.6-49.0); Lymphocytes % 16.4 % (15.3-44.8); MPV 7.3 fL (7.6-11.3); RBC Red Blood Cell Count 4.67 M/uL (4.33-5.43)
[2019-04-30 06:07] LABS: Magnesium 2.1 mg/dL (1.8-2.4); Potassium 4.8 mmol/L (3.5-5.1); Thyroid Stimulating Hormone 0.464 uIU/mL (0.360-3.740)
[2019-04-30] MEDS: ARFORMOTEROL TARTRATE 15 MCG/2 ML VIAL.NEB NEB SCH ×2 (08:25→19:45)
[2019-04-30] MEDS: predniSONE 20 MG TAB PO SCH (08:45)
[2019-04-30] MEDS: FAMOTIDINE 20 MG TAB PO SCH ×2 (08:46→20:09)
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
[2019-04-30] MEDS ORDERED: LISINOPRIL 5 MG TAB PO SCH (09:00)
[2019-04-30] MEDS ORDERED: METHYLPREDNISOLONE 40 MG INJ IV SCH (09:00)
[2019-04-30] MEDS: PIPER/TAZO/NS 4.5gm 4.5 GM/100 ML BAG IVPB SCH ×2 (09:49→17:03)
[2019-04-30] MEDS: IPRATROPIUM BROM 0.5MG/2.5ML NEB SCH ×2 (13:36→19:45)
--- NOTE | 2019-04-30 15:07 | P.PN ---
Subjective Date of Service: 04/30/19 Primary Care Provider: Dr. Colmenares Chief Complaint: Shortness of breath Subjective: Improving Physical Examination - Vital Signs Temperature: 97.9 F Blood Pressure: 131/80 Pulse: 88 Respirations: 18 Pulse Ox (%): 93 - Physical Exam General: Alert, In no apparent distress, Oriented x3, Cooperative HEENT: Atraumatic Neck: Supple Respiratory: Clear to auscultation bilaterally, Normal air movement Cardiovascular: Normal pulses, Regular rate/rhythm Gastrointestinal: Normal bowel sounds, Soft and benign, Non-distended Neurological: Normal speech, Normal strength at 5/5 x4 extr, Normal tone, Normal affect - Studies Laboratory Data (last 24 hrs) 04/30/19 05:14: Sodium 140, Potassium 4.8, BUN 27 H, Creatinine 0.89, Glucose 121 H, Magnesium 2.1 04/30/19 05:14: WBC 4.9 D, Hgb 13.7, Hct 41.2, Plt Count 342 Microbiology Data (last 24 hrs): 04/29/19 12:15 Nasopharnyx Influenza Type A Antigen Screen - Final 04/29/19 12:15 Nasopharnyx Influenza Type B Antigen Screen - Final Medications List Reviewed: Yes Assessment & Plan Discharge Plan: Home Plan to discharge in: 24 Hours Physician Review Additional Text: Impression: Shortness of breath secondary to COPD exacerbation with likely postobstructive pneumonitis complicated with 3.4 cm right upper lobe nodule likely bronchogenic carcinoma with marked mediastinal and hilar lymphadenopathy Hypertension Neuropathy Former tobacco use Plan: Shortness of breath secondary to COPD exacerbation with likely postobstructive pneumonitis complicated with 3.4 cm right upper lobe nodule likely bronchogenic carcinoma with marked mediastinal and hilar lymphadenopathy: Continue with COPD medication including steroid treatment, Brovana, and albuterol/Atrovent. Will provide DVT prophylaxis-Lovenox. Case discussed with pulmonology. Suspect bronchogenic carcinoma. Bronchoscopy to be done tomorrow. Will order Brain MRI to evaluate for brain mets. Hypertension: Continue with home medication lisinopril. Neuropathy: Continue with medication Valium. Former tobacco use: Patient no longer smokes. Continue cessation. Time Spent Managing Pts Care (In Minutes): 55
--- NOTE | 2019-04-30 15:36 | RAD REPORT ---
EXAM DESCRIPTION: MRI - Brain W/Wo Cont - 04/30/2019 3:06 pm CLINICAL HISTORY: Suspect Lung Cancer, rule out mets Headache, drowsiness COMPARISON: Chest For Pe Angio dated 04/29/2019; Thorax W/ Con dated 04/17/2019 TECHNIQUE: Multi-sequence, multiplanar MR imaging of the brain was performed with contrast. FINDINGS: No intracranial hemorrhage, hydrocephalus, or extra-axial fluid collection.Diffuse areas o f T2 FLAIR hyperintensity are noted in the periventricular region as well as adjacent to the left cer ebral peduncle. These are nonspecific but favored to represent chronic microvascular ischemic changes . No edema or shift of midline structures. No intracranial mass. DWI is negative for acute CVA. The midline structures are normally formed. Mastoid air cells and paranasal sinuses are clear. Post-contrast images show no abnormal enhancement to suggest tumor or infection. IMPRESSION: No evidence of intracranial metastatic disease.
[2019-04-30] MEDS: METHYLPREDNISOLONE 40 MG INJ IV SCH (17:03)
[2019-04-30] MEDS: DIAZEPAM 5 MG TABLET PO PRN (22:00)
[2019-05-01] MEDS: PIPER/TAZO/NS 4.5gm 4.5 GM/100 ML BAG IVPB SCH ×2 (01:59→09:00)
[2019-05-01] MEDS: METHYLPREDNISOLONE 40 MG INJ IV SCH ×2 (02:00→09:00)
[2019-05-01] MEDS: IPRATROPIUM BROM 0.5MG/2.5ML NEB SCH ×3 (02:10→14:00)
[2019-05-01] MEDS: HYDROCODONE/APAP 7.5/325 MG TAB PO PRN ×2 (05:51→12:59)
[2019-05-01 06:18] LABS: Absolute Lymphocytes (CBC) 0.7 K/uL (0.7-4.9); Basophils % 0.2 % (0-1.3); Hematocrit 42.1 % (39.6-49.0); Lymphocytes % 10.2 % (15.3-44.8); MPV 7.5 fL (7.6-11.3); RBC Red Blood Cell Count 4.82 M/uL (4.33-5.43)
[2019-05-01 06:27] LABS: Magnesium 2.2 mg/dL (1.8-2.4)
[2019-05-01 08:00] LABS: Blood Morphology Comment NOT SEEN (NOT SEEN); Platelet Estimate ADEQ; Urine White Blood Cell Casts OK
[2019-05-01] MEDS: ARFORMOTEROL TARTRATE 15 MCG/2 ML VIAL.NEB NEB SCH (08:22)
--- NOTE | 2019-05-01 08:23 | ECHO ---
HEIGHT: 5 ft 11 in WEIGHT: 167 lb 11.2 oz DATE OF STUDY: 04/30/[address]: Shane Kennedy DO 2-DIMENSIONAL: YES M.MODE: YES DOPPLER: YES COLOR FLOW: YES TDS: NO PORTABLE: NO DEFINITY: NO BUBBLE STUDY: NO DIAGNOSIS: SHORTNESS OF BREATH CARDIAC HISTORY: CATHERIZATION: NO SURGERY: NO PROSTHETIC VALVE: NO PACEMAKER: NO MEASUREMENTS (cm) DIASTOLIC (NORMALS) SYSTOLIC (NORMALS) IVSd 0.8 (0.6-1.2) LA Diam 2.8 (1.9-4.0) LVEF 66% LVIDd 3.8 (3.5-5.7) LVIDs 2.4 (2.0-3.5) %FS 36% LVPWd 1.0 (0.6-1.2) Ao Diam 2.6 (2.0-3.7) 2 DIMENSIONAL ASSESSMENT: RIGHT ATRIUM: NORMAL LEFT ATRIUM: NORMAL RIGHT VENTRICLE: NORMAL LEFT VENTRICLE: NORMAL TRICUSPID VALVE: NORMAL MITRAL VALVE: NORMAL PULMONIC VALVE: NORMAL AORTIC VALVE: NORMAL PERICARDIAL EFFUSION: NONE AORTIC ROOT: NORMAL LEFT VENTRICULAR WALL MOTION: NORMAL. DOPPLER/COLOR FLOW: NORMAL. COMMENTS: NORMAL 2D ECHO WITH DOPPLER. NO EFFUSION. NO WALL MOTION ABNORMALITY. TECHNOLOGIST: MASSIMO ARAUJO
[2019-05-01] MEDS ORDERED: Phenylephrine HCl 10 MG/ML 1 ML VIAL ONE ×2 (08:46→09:36)
[2019-05-01] MEDS ORDERED: LIDOCAINE 4% TOP SOLUTION ONE (08:47)
[2019-05-01] MEDS ORDERED: GLYCOPYRROLATE 0.2 MG/ML SYR ONE (08:47)
[2019-05-01] MEDS ORDERED: LIDOCAINE 1% MPF 30 ML VIAL ONE (08:47)
[2019-05-01] MEDS ORDERED: LIDOCAINE VISCOUS 2% SOLN 15 ML UDC ONE (08:47)
[2019-05-01] MEDS ORDERED: Ringers Lactate 1,000 ML IV ONE (08:48)
[2019-05-01] MEDS ORDERED: LIDOCAINE 4% TOP SOLUTION MM ONE (08:50)
[2019-05-01] MEDS: FAMOTIDINE 20 MG TAB PO SCH (09:00)
[2019-05-01] MEDS ORDERED: EPHEDRINE SULF 50 MG/ML VIAL ONE (09:36)
[2019-05-01] MEDS ORDERED: LIDOCAINE 1% MPF 5 ML VIAL ONE (09:36)
[2019-05-01] MEDS ORDERED: PROPOFOL 200 MG/20 ML VIAL IV ONE ×2 (09:36)
[2019-05-01] MEDS ORDERED: NS 0.9% VIAL 0 ML ONE (09:36)
--- NOTE | 2019-05-01 10:23 | P.DS ---
Admission Date: 04/30/19 Discharge Date: 05/01/19 Primary Care Provider: Dr. Colmenares Disposition: DC HOME/HOME HEALTH CARE Discharge Condition: GOOD Reason for Admission: Shortness of breath Consultations: Pulmonary-Dr. Zelaya Procedures: CT chest: FINDINGS: A pulmonary embolus is not seen. A thoracic aortic aneurysm is not noted. A pleural effusion is not seen. A pericardial effusion is not seen. Marked mediastinal and bilateral hilar lymphadenopathy without significant change. 3.4 centimeter right upper lobe nodule is unchanged. Mild worsening in a right lower lobe and right middle lobe opacities Dilated esophagus secondary to compression by the lymphadenopathy. Superior vena cava is compressed by lymphadenopathy. IMPRESSION: Negative for a pulmonary embolism. Marked mediastinal and hilar lymphadenopathy 3.4 centimeter right upper lobe nodule likely bronchogenic carcinoma Mild worsening in the moderate to marked right lower lobe and right middle lobe opacities which may represent pneumonia or postobstructive pneumonitis COPD MRI Brain: FINDINGS: No intracranial hemorrhage, hydrocephalus, or extra-axial fluid collection.Diffuse areas of T2 FLAIR hyperintensity are noted in the periventricular region as well as adjacent to the left cerebral peduncle. These are nonspecific but favored to represent chronic microvascular ischemic changes. No edema or shift of midline structures. No intracranial mass. DWI is negative for acute CVA. The midline structures are normally formed. Mastoid air cells and paranasal sinuses are clear. Post-contrast images show no abnormal enhancement to suggest tumor or infection. IMPRESSION: No evidence of intracranial metastatic disease. ECHO: EF 66% LEFT VENTRICULAR WALL MOTION: NORMAL. DOPPLER/COLOR FLOW: NORMAL. COMMENTS: NORMAL 2D ECHO WITH DOPPLER. NO EFFUSION. NO WALL MOTION ABNORMALITY. Medical Problem List: Shortness of breath secondary to COPD exacerbation complicated with 3.4 cm right upper lobe nodule likely bronchogenic carcinoma with marked mediastinal and hilar lymphadenopathy, status post bronchoscopy requiring home oxygen Hypertension Neuropathy GERD Former tobacco use Brief History of Present Illness: 64-year-old male with history of former tobacco use, hypertension and neuropathy. Patient presented with shortness of breath. Patient reports shortness of breath started about 6 weeks ago. About 5 weeks ago he was seen at [facility] wasn was to be admitted. Patient declined. He was given antibiotics at that discharge. He came back to the [facility] for increasing shortness of breath. He was admitted at that time and eventually discharged with oral antibiotic-clarithromycin and Augmentin. Then 2 weeks ago he was seen at our ER. He was to be readmitted for failed outpatient pneumonia therapy. He declined to be admitted to the hospital. He was given Levaquin instead. At that time CT scan revealed right upper lobe nodule. Today he continues to have increasing shortness of breath. Wheezing noted. He denied any fever, chills, nausea, or chest pain. Patient came to the ER for further evaluation. In the ER patient evaluated. White count 7.6, hemoglobin 14.5. For the count 322. Sodium 140, potassium 4.2, creatinine 0.91 with a GFR 54. Glucose 117. Blood pressure stable. Patient placed on oxygen. Troponin unremarkable. Lactic acid and pro calcitonin negative. CT scan shows COPD changes. 3.4 cm right upper lobe nodule likely bronchogenic carcinoma noted. Mild worsening in moderate to right lower lobe and right middle lobe opacity likely postobstructive pneumonitis. Marked mediastinal and hilar adenopathy noted. Patient admitted for further evaluation When I saw the patient in the ER, he appeared stable. Patient on nasal cannula. Patient did not appear septic. Patient reports a history of former tobacco use. He quit 2 years ago. He suspects that he has underlying COPD. He is not on any medication. Patient has been referred up to [place] for possible biopsy of lymph nodes. Hospital Course: Patient presented with shortness of breath. Patient had been treated multiple times for pneumonia. Recent CT scan showed 3.4 cm right upper lobe nodule likely bronchogenic cancer. Marked mediastinal hilar lymphadenopathy also was noted. Patient was admitted for COPD exacerbation and further evaluation of nodule. Pulmonology was consulted. Pulmonology performed a bronchoscopy. Biopsy was obtained. No evidence of infection. At discharge patient requires home oxygen. Home health and home oxygen will be arranged to maintain sats above 93%. At discharge patient will be started on COPD medication-Advair 1 puff twice daily and Pro air 2 puffs 3 times a day as needed for shortness of breath. Patient will continue with steroid taper: prednisone 5 mg 2 pills twice daily for 5 days then 1 pill twice daily for 5 days then 1 pill daily. Patient will follow up with pulmonology within 1 week to go over biopsy report. Please note MRI brain unremarkable for metastasis. Echocardiogram also unremarkable. Patient with hypertension. This has remained stable. At discharge he will continue with lisinopril 5 mg daily. Patient likely with underlying GERD. At discharge patient will continue with Pepcid 20 mg 1 pill twice daily. GERD diet will be provided. Patient may benefit with GI evaluation in the future to further evaluate. Patient will require EGD and colonoscopy in the future. Patient with history of neuropathy. Patient may continue with his medication of Valium 5 mg daily as needed. Patient with former tobacco use. Patient no longer smokes. Vital Signs/Physical Exam: Temp Pulse Resp BP Pulse Ox 98.1 F 109 H 20 140/90 96 05/01/19 08:55 05/01/19 08:55 05/01/19 08:55 05/01/19 08:55 05/01/19 08:00 General: Alert, In no apparent distress, Oriented x3, Cooperative HEENT: Atraumatic Neck: Supple Respiratory: Clear to auscultation bilaterally, Normal air movement Cardiovascular: Normal pulses, Regular rate/rhythm Gastrointestinal: Normal bowel sounds, Soft and benign, Non-distended, No tenderness, No masses, No rebound, No guarding Musculoskeletal: No erythema, No tenderness, No warmth Integumentary: No tenderness/swelling, No erythema, No warmth, No cyanosis Neurological: Normal speech, Normal strength at 5/5 x4 extr, Normal tone, Normal affect Laboratory Data at Discharge: WBC 7.0 K/uL (4.3-10.9) D 05/01/19 05:41 Hgb 14.1 g/dL (13.6-17.9) 05/01/19 05:41 Hct 42.1 % (39.6-49.0) 05/01/19 05:41 Plt Count 393 K/uL (152-406) 05/01/19 05:41 PT 12.2 SECONDS (9.5-12.5) 04/29/19 08:45 INR 1.04 04/29/19 08:45 Sodium 138 mmol/L (136-145) 05/01/19 05:41 Potassium 4.0 mmol/L (3.5-5.1) 05/01/19 05:41 BUN 28 mg/dL (7-18) H 05/01/19 05:41 Creatinine 0.99 mg/dL (0.55-1.3) 05/01/19 05:41 Glucose 128 mg/dL (74-106) H 05/01/19 05:41 Magnesium 2.2 mg/dL (1.8-2.4) 05/01/19 05:41 Total Bilirubin 0.4 mg/dL (0.2-1.0) 04/29/19 08:45 AST 30 U/L (15-37) 04/29/19 08:45 ALT 19 U/L (12-78) 04/29/19 08:45 Alkaline Phosphatase 50 U/L (45-117) 04/29/19 08:45 Home Medications: Lisinopril 5 mg PO DAILY 04/29/19 diazePAM [Diazepam] 5 mg PO BEDTIME PRN PRN 04/29/19 Albuterol Sulfate [Proair Hfa] 2 puff IH TID PRN #2 hfa.aer.ad 05/01/19 Benzonatate [Tessalon Perle*] 100 mg PO TID PRN #15 cap 05/01/19 Famotidine [Pepcid*] 20 mg PO BID #60 tab 05/01/19 Fluticasone/Salmeterol [Advair 250-50 Diskus] 1 each IH BID #1 blst.w.dev predniSONE [Deltasone] 5 mg PO SEECOM #35 tab 05/01/19 New Medications: Albuterol Sulfate [Proair Hfa] 2 puff IH TID PRN #2 hfa.aer.ad PRN Reason: Shortness Of Breath Benzonatate [Tessalon Perle*] 100 mg PO TID PRN #15 cap PRN Reason: Cough Famotidine [Pepcid*] 20 mg PO BID #60 tab Fluticasone/Salmeterol [Advair 250-50 Diskus] 1 each IH BID #1 blst.w.dev predniSONE [Deltasone] 5 mg PO SEECOM #35 tab Patient Discharge Instructions: 1. Recommend follow up with PCP in 1 week to follow up this hospitalization. 2. Patient presented with shortness of breath. Patient had been treated multiple times for pneumonia. Recent CT scan showed 3.4 cm right upper lobe nodule likely bronchogenic cancer. Marked mediastinal hilar lymphadenopathy also was noted. Patient was admitted for COPD exacerbation and further evaluation of nodule. Pulmonology was consulted. Pulmonology performed a bronchoscopy. Biopsy was obtained. No evidence of infection. At discharge patient requires home oxygen. Home health and home oxygen will be arranged to maintain sats above 93%. At discharge patient will be started on COPD medication-Advair 1 puff twice daily and Pro air 2 puffs 3 times a day as needed for shortness of breath. Patient will continue with steroid taper: prednisone 5 mg 2 pills twice daily for 5 days then 1 pill twice daily for 5 days then 1 pill daily. Patient will follow up with pulmonology within 1 week to go over biopsy report. Please note MRI brain unremarkable for metastasis. Echocardiogram also unremarkable. 3. Patient with hypertension. This has remained stable. At discharge he will continue with lisinopril 5 mg daily. 4. Patient likely with underlying GERD. At discharge patient will continue with Pepcid 20 mg 1 pill twice daily. GERD diet will be provided. Patient may benefit with GI evaluation in the future to further evaluate. Patient will likely require EGD and colonoscopy in the future. 5. Patient with history of neuropathy. Patient may continue with his medication of Valium 5 mg daily as needed. 6. Patient with former tobacco use. Patient no longer smokes. Diet: AHA Activity: Ad sylvia Time spent managing pt's care (in minutes): 55
--- NOTE | 2019-05-01 11:35 | RAD REPORT ---
EXAM DESCRIPTION: RADChest Single View05/01/2019 11:28 am CLINICAL HISTORY: Bronchoscopy COMPARISON: April 29, 2019 FINDINGS: A pneumothorax is not visualized status post bronchoscopy. Mediastinal, hilar lymphadenopathy in right lung opacities again demonstrated
[2019-05-01 12:14] VITALS: O2SAT 95
--- NOTE | 2019-05-01 13:01 | P.OP ---
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 Otherwise no endobronchial lesions visible at the yfn and the lower lobe bronchi looked all patent in the right and the left side. Multiple biopsies were performed from the right upper lobe anterior segmental bronchus including a wire brushing and a BAL He of the infiltrate on the right lung I performed a BAL on the right side patient's condition remained stable to be discharged home on prednisone 10 mg twice a day no antibiotics needed there is no evidence of infection in the bronchial tree no pulse was visible
[2019-05-01 13:02] VITALS: BP 138/80; TEMP 97.3
== END 2019-05-01 17:15 | disposition home health service (06) | DRG 190 ==
LOC: ER 08:02 → ERHOLD 12:39 → 2ND 14:55 → OBSVTOIN 04-30 13:44
PROVIDERS: ADMIT Family Medicine; ATTEND Family Medicine
PROC: 0BD48ZX Extraction of Right Upper Lobe Bronchus, Via Natural or Artificial Opening Endoscopic, Diagnostic (ICD-10-PCS; 2019-05-01)
PROC: 0B9K8ZX Drainage of Right Lung, Via Natural or Artificial Opening Endoscopic, Diagnostic (ICD-10-PCS; principal; 2019-05-01 09:30)
DX: J44.1 Chronic obstructive pulmonary disease with (acute) exacerbation (principal); J18.8 Other pneumonia, unspecified organism; C10.4 Malignant neoplasm of branchial cleft; I10 Essential (primary) hypertension; K21.9 Gastro-esophageal reflux disease without esophagitis; R63.4 Abnormal weight loss; G62.9 Polyneuropathy, unspecified; R59.0 Localized enlarged lymph nodes; Z87.891 Personal history of nicotine dependence; Z68.23 Body mass index [BMI] 23.0-23.9, adult
CPT/HCPCS: 36415; 70553; 71045; 71275; 80048; 80076; 81003; 83605; 83735; 83880; 84145; 84439; 84443; 84484; 85025; 85610; 87015; 87040; 87070; 87077; 87102; 87116; 87186; 87206; 87804; 88108; 88305; 93005; 93306; 94640; 96374; 96375; 99285; A9577; G0378; J1650; J2370; J2405; J2704; J2920; J7040; J7120; J7512; J7605; Q9967